=== PATIENT | male | born 1980 | race Two or more races ===

== ENCOUNTER → 2019-12-08 11:45 | Outpatient (BNVA) | payer MEDICAID, SELFPAY | PROVIDERS: Visit Provider Physician Assistant | DX: K21.9 Gastro-esophageal reflux disease without esophagitis (principal); Z79.899 Other long term (current) drug therapy | CPT/HCPCS: 99213 ==

== ENCOUNTER 2019-12-27 09:26 | Outpatient (REF) | payer MEDICAID, SELFPAY | END 2019-12-27 09:27 | disposition home or self-care (01) | LOC: HO.LAB 09:26 | PROVIDERS: Visit Provider Internal Medicine | DX: Z20.828 Contact with and (suspected) exposure to other viral communicable diseases (principal) | CPT/HCPCS: 87635 ==

== ENCOUNTER 2020-02-01 17:44 | Outpatient (REF) | payer MEDICAID, SELFPAY | END 2020-02-01 17:45 | disposition home or self-care (01) | LOC: HO.LAB 17:44 | PROVIDERS: Visit Provider Internal Medicine | DX: Z20.828 Contact with and (suspected) exposure to other viral communicable diseases (principal) | CPT/HCPCS: C9803; U0003 ==

== ENCOUNTER 2020-03-20 10:11 | Outpatient (REF) | payer MEDICAID, SELFPAY | END 2020-03-20 10:12 | disposition home or self-care (01) | LOC: HO.LAB 10:11 | PROVIDERS: PCP Internal Medicine; Visit Provider Internal Medicine | DX: Z20.822 Contact with and (suspected) exposure to COVID-19 (principal) | CPT/HCPCS: 36415; C9803; U0003 ==

== ENCOUNTER 2020-05-15 10:35 | Outpatient (REF) | payer MEDICAID, SELFPAY | END 2020-05-15 10:36 | disposition home or self-care (01) | LOC: HO.LAB 10:35 | PROVIDERS: Visit Provider Internal Medicine | DX: Z20.822 Contact with and (suspected) exposure to COVID-19 (principal) | CPT/HCPCS: 36415; C9803; U0003; U0005 ==

== ENCOUNTER 2021-01-30 16:20 | Outpatient (REF) | payer MEDICAID, SELFPAY ==
--- NOTE | ~2021-01-30 | XR_ITS ---
EXAMINATION: XR CERVICAL SPINE CLINICAL INFORMATION: Neck pain. COMPARISON: Cervical spine 11/02/2018 TECHNIQUE: 5 views of the cervical spine were obtained. FINDINGS: No fracture. No subluxation. The alignment of vertebrae is normal. There is mild cervical disc height narrowing C5-C6. There is a large nonbridging spur at the C4-C5 vertebral body involving the anterior endplates and small nonbridging spurs at C5-C6. There is mild narrowing of the left C5-C6 neural foramina by posterior endplate spurs at the uncinate process. The right neural foramina are open. The facet joints are normal. Compared to the prior exam of 11/02/2018 there has not been substantial change. XR/XR cervical spine 4V IMPRESSION: Mild degenerative spondylosis of cervical spine. There is mild narrowing of the left C5-C6 neural foramina.
--- NOTE | ~2021-01-30 | XR_ITS ---
EXAMINATION: XR SHOULDER, LEFT CLINICAL INFORMATION: Pain in left shoulder COMPARISON: None TECHNIQUE: 4 views. of the left shoulder. FINDINGS: The bones and soft tissues are normal. No fracture. Glenohumeral and acromioclavicular alignment is anatomic with normal joint space. No abnormal soft tissue calcifications. XR/XR shoulder LT min 2V IMPRESSION: Normal left shoulder.
== END 2021-01-30 16:21 | disposition home or self-care (01) ==
LOC: HO.XRAY 16:20
PROVIDERS: Absent Provider Internal Medicine; PCP Internal Medicine; Visit Provider Registered Nurse Community Health
DX: M25.512 Pain in left shoulder (principal); M54.2 Cervicalgia
CPT/HCPCS: 72050; 73030

== ENCOUNTER 2022-01-03 13:53 | Outpatient (REF) | payer OTHER, MEDICAID, SELFPAY ==
--- NOTE | ~2022-01-03 | XR_ITS ---
EXAMINATION: XR LUMBOSACRAL SPINE WITH OBLIQUES CLINICAL INFORMATION: Pain COMPARISON: None TECHNIQUE: AP, both oblique, and lateral views of the lumbar spine. Lateral view of the lumbosacral junction. FINDINGS: Bone alignment is normal. No fracture or dislocation. Degenerative disc disease and spondylosis at L3-L4. Disc spaces are otherwise normal. Facet joints are normal. No pars defect. XR/XR lumbar spine 4V min IMPRESSION: Degenerative changes at L3-L4.
== END 2022-01-03 13:54 | disposition home or self-care (01) ==
LOC: HO.XRAY 13:53
PROVIDERS: Absent Provider Internal Medicine; PCP Internal Medicine; Visit Provider Emergency Medicine
DX: M54.16 Radiculopathy, lumbar region (principal)
CPT/HCPCS: 72110

== ENCOUNTER 2022-02-17 09:11 | Outpatient (REF) | payer OTHER, MEDICAID, SELFPAY ==
--- NOTE | ~2022-02-17 | XR_ITS ---
EXAMINATION: XR CERVICAL SPINE CLINICAL INFORMATION: Cervicalgia. COMPARISON: 01/30/2021. TECHNIQUE: 5 views of the cervical spine. FINDINGS: No abnormal prevertebral soft tissue swelling is seen. No acute cervical spine fracture is noted. There is disc space narrowing with spurring seen C3-C6. No subluxation is identified. There is anterior neural foraminal encroachment seen at the C5-C6 level on the left. This was present previously. XR/XR cervical spine 4V IMPRESSION: Cervical spondylosis as described with some anterior neural foraminal encroachment also seen left C5-C6 level.
== END 2022-02-17 09:12 | disposition home or self-care (01) ==
LOC: HO.XRAY 09:11
PROVIDERS: Visit Provider Nurse Practitioner Women's Health
DX: M54.2 Cervicalgia (principal)
CPT/HCPCS: 72050

== ENCOUNTER 2022-04-16 16:00 | Outpatient (RCR) | payer OTHER, MEDICAID, SELFPAY | END 2022-04-17 15:07 | disposition home or self-care (01) | LOC: HO.PT 16:00 | PROVIDERS: PCP Registered Nurse Community Health; Visit Provider Nurse Practitioner Women's Health | DX: M54.2 Cervicalgia (principal) | CPT/HCPCS: 97110; 97140; 97161; 97530 ==

== ENCOUNTER 2023-05-12 08:38 | Outpatient (REF) | payer OTHER, MEDICAID, SELFPAY ==
[2023-05-12 11:13] LABS: MANUAL DIFF FLAG NO
[2023-05-12 11:36] LABS: Basophils Percent Auto 0.3 % (0-2); Eosinophils Absolute Auto 0.1 X10*3/uL (0.0-0.4); Eosinophils Percent Auto 1.3 % (0-4); Hematocrit 45.3 % (42.0-52.0); Hemoglobin 15.6 g/dl (14.0-18.0); Imm Gran Abs Auto 0.01 X10*3/uL (0.00-0.03); Imm Gran Pct Auto 0.1 % (0.0-0.4); Lymphocytes Absolute Auto 2.2 X10*3/uL (1.2-4.9); Mean Corpuscular HGB Conc 34.4 g/dl (31.0-36.0); Mean Corpuscular Hemoglobin 30.8 pg (27.0-33.0); Mean Corpuscular Volume 89.3 fL (80.0-98.0); Mean Platelet Volume 11.6 fL (9.4-12.4); Monocytes Absolute Auto 0.4 X10*3/uL (0.1-1.2); Monocytes Percent Auto 6.3 % (2-11); Neutrophils Absolute Auto 3.9 x10*3/uL (2.0-8.3); Platelet Count 170 X10*3/uL (160-400); Red Blood Count 5.07 X10*6/uL (4.60-5.80); White Blood Count 6.7 X10*3/uL (4.8-10.8)
[2023-05-12 11:47] LABS: Estimated Average Glucose 103 mg/dL; Hemoglobin A1C 127.7336 umol/L; Hemoglobin A1c % 5.2 % (<6.0)
[2023-05-12 12:02] LABS: Alanine Aminotransferase 48 U/L (0-40); Albumin Level 4.4 g/dL (3.5-5.0); Alkaline Phosphatase 71 U/L (39-117); Anion Gap 7 (12-20); Aspartate Amino Transferase 27 U/L (5-37); Bilirubin Direct < 0.2 mg/dL (0.0-0.5); Bilirubin Total 0.2 mg/dL (0.0-1.0); Blood Urea Nitrogen 18 mg/dL (9-16); Calcium 9.1 mg/dL (8.4-10.2); Carbon Dioxide 24 mmol/L (22-29); Chloride 113 mmol/L (96-108); Cholesterol 191 mg/dL (<200); Estimated Glomerular Filt Rate > 60; Glucose Random 93 mg/dL (60-115); HDL Cholesterol 35 mg/dL (>40); LDL Cholesterol Calculated 122 mg/dL (<100); Potassium 4.4 mmol/L (3.3-5.1); Sodium 140 mmol/L (135-145); TSH reflex Free T4 0.24 uIU/mL (0.32-4.0); Total Protein 7.2 g/dL (6.5-8.0); Triglycerides 173 mg/dL (<150)
[2023-05-12 12:09] LABS: HIV AB/AG Nonreactive (Nonreactive); HIV Num 1 0.05 S/CO (0.00-0.99); ~HepC Num1 0.09 S/CO (0.00-0.79); ~Hepatitis C Antibody Nonreactive (Nonreactive)
[2023-05-12 13:34] LABS: CT PCR NOT DETECTED (Not Detect.); NG PCR NOT DETECTED (Not Detect.)
[2023-05-13 12:48] LABS: RPR Rapid Plasma Reagin NON-REACTIVE (NON-REACTIVE)
== END 2023-05-12 08:39 | disposition home or self-care (01) ==
LOC: HO.HHCL 08:38
PROVIDERS: Visit Provider Internal Medicine
DX: Z00.00 Encounter for general adult medical examination without abnormal findings (principal); Z11.4 Encounter for screening for human immunodeficiency virus [HIV]; Z13.6 Encounter for screening for cardiovascular disorders; R00.2 Palpitations; Z20.2 Contact with and (suspected) exposure to infections with a predominantly sexual mode of transmission
CPT/HCPCS: 0353U; 36415; 80048; 80061; 80076; 83036; 84439; 84443; 85025; 86592; 86803; 87389

== ENCOUNTER 2023-06-03 10:27 | Emergency (ER) | payer MEDICAID, SELFPAY ==
--- NOTE | ~2023-06-03 | XR_ITS ---
EXAMINATION: XR CHEST CLINICAL INFORMATION: Chest pain COMPARISON: 11/20/2019 TECHNIQUE: 2 views of the chest were obtained. FINDINGS: No significant abnormality is noted involving the heart, lungs, mediastinum, bony thorax or soft tissues. XR/XR chest 2V IMPRESSION: Unremarkable examination with no interval change.
--- NOTE | 2023-06-03 10:32 | ECG_ITS ---
Test Reason : chest pain Blood Pressure : / mmHG Vent. Rate : 069 BPM Atrial Rate : 069 BPM P-R Int : 162 ms QRS Dur : 092 ms QT Int : 338 ms P-R-T Axes : 078 013 039 degrees QTc Int : 362 ms Normal sinus rhythm Normal ECG No previous ECGs available Referred By: Generic ED Physician Electronically Signed By:WILD LARSEN MD
[2023-06-03 10:33] VITALS: BP 105/44; PULSE 91; RESP 20; TEMP 36.4; O2SAT 98; BMI 25.8
[2023-06-03 10:47] LABS: MANUAL DIFF FLAG NO
[2023-06-03 10:48] LABS: Basophils Percent Auto 0.4 % (0-2); Eosinophils Absolute Auto 0.1 X10*3/uL (0.0-0.4); Eosinophils Percent Auto 1.5 % (0-4); Hematocrit 42.5 % (42.0-52.0); Hemoglobin 14.5 g/dl (14.0-18.0); Imm Gran Abs Auto 0.01 X10*3/uL (0.00-0.03); Imm Gran Pct Auto 0.2 % (0.0-0.4); Lymphocytes Absolute Auto 2.2 X10*3/uL (1.2-4.9); Lymphocytes Percent Auto 46.3 % (20-40); Mean Corpuscular HGB Conc 34.1 g/dl (31.0-36.0); Mean Corpuscular Hemoglobin 30.3 pg (27.0-33.0); Mean Corpuscular Volume 88.7 fL (80.0-98.0); Mean Platelet Volume 11.2 fL (9.4-12.4); Monocytes Absolute Auto 0.4 X10*3/uL (0.1-1.2); Monocytes Percent Auto 8.4 % (2-11); Neutrophils Absolute Auto 2.1 x10*3/uL (2.0-8.3); Neutrophils Percent Auto 43.2 % (45-73); Platelet Count 179 X10*3/uL (160-400); Red Blood Count 4.79 X10*6/uL (4.60-5.80); Red Cell Distribution Width 13.3 % (11.0-16.0); White Blood Count 4.8 X10*3/uL (4.8-10.8)
[2023-06-03 11:19] LABS: Anion Gap 11 (12-20); Blood Urea Nitrogen 16 mg/dL (9-16); Calcium 9.7 mg/dL (8.4-10.2); Carbon Dioxide 23 mmol/L (22-29); Chloride 111 mmol/L (96-108); Creatinine Clr Calc Pharmacy 116.8; Estimated Glomerular Filt Rate > 60; Glucose Random 106 mg/dL (60-115); Potassium 4.3 mmol/L (3.3-5.1); Sodium 141 mmol/L (135-145)
[2023-06-03 11:33] LABS: Troponin-I High Sensitivity < 2.7 ng/L (<3.5-35.0)
[2023-06-03 13:09] LABS: Influenza A PCR NEGATIVE (Negative); Influenza B PCR NEGATIVE (Negative); Resp Syncy Virus RNA Qual PCR NEGATIVE (Negative); SARS COV2 PCR INHOUSE NEGATIVE (Negative)
[2023-06-03 15:33] VITALS: BP 115/73; PULSE 83; RESP 20; O2SAT 97
--- NOTE | 2023-06-03 15:34 | ED_ITS ---
HPI - Chest Pain General Chief Complaint: Chest Pain Stated Complaint: Chest pain, headache Time Seen by Provider: 06/03/23 15:22 Source: patient Mode of arrival: ambulatory Limitations: no limitations History of Present Illness HPI narrative: 42 yo male with hx of HLD no fam hx of early CAD here with c/o pinching atypical reproduceable L upper chest wall pain with no dyspnea, nausea, not related to exertion. Denies travel or procedures. Notes it just comes out of nowhere. 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 Has no known CAD. MD complaint: chest pain Onset (ago): day(s) (7) Timing of current episode: episodic Prior episodes: No Onset: during rest Pain location: left chest Pain radiation: none Severity: mild Quality: other (sharp and pinching) Relieving factors: nothing Exacerbating factors: nothing Context: other (just started back to [facility] and usually gets sore) Treatment prior to arrival: none Related Data Home Medications Medication Instructions Recorded Confirmed gabapentin 300 mg capsule 300 mg PO BEDTIME 12/08/19 12/08/19 pantoprazole 40 mg tablet,delayed 40 mg PO DAILY 12/08/19 12/08/19 release Previous Rx's Medication Instructions Recorded cyclobenzaprine 10 mg tablet 10 mg PO TID PRN muscle spasm #20 06/03/23 tabs Allergies Allergy/AdvReac Type Severity Reaction Status Date / Time No Known Allergies Allergy Verified 12/08/19 11:52 none Allergy Unknown n/a Uncoded 12/08/19 11:52 Review of Systems 2 Review of Systems: Constitutional : No Weight loss, No Fever, No Chills ENT/Mouth : No sore throat, No Rhinorrhea Eyes: No Eye Pain, No Swelling Cardiovascular : pos Chest Pain, no SOB, no Dyspnea on Exertion, No Orthopnea, No Edema, No Palpitations Respiratory : No Cough, No Sputum Gastrointestinal : no Nausea, No Vomiting, No Diarrhea, No abdominal Pain, No Hematochezia, No Melena Genitourinary : No Dysuria, No Urinary Frequency Musculoskeletal : No joint pain, No Myalgias, No Joint Swelling Skin : No Skin Lesions, No rash Neuro : No Weakness, No Numbness, No Dizziness, No Headache All other systems reviewed and are negative [facility] Past Medical History Attestation statement: The following information was validated with the patient. Source: old records reviewed Medical History Elevated liver enzymes Acid reflux Surgical History H/O umbilical hernia repair Family History Family History Mother No problems noted. Father Liver disease Social History Social History Alcohol intake: current Alcohol intake frequency: a few times a month Alcohol type: beer Cigarette Packs Per Day: 1 Cigarettes Per Day: 20.0 Years Smoked: 20 Advance Directives: No Advance Directives Information Provided: No Physical Exam 2 Vital Signs: Vital Signs: Last Vital Signs Temp 97.5 F 06/03/23 10:33 Pulse 91 06/03/23 10:33 Resp 20 06/03/23 10:33 BP 105/44 L 06/03/23 10:33 Pulse Ox 98 06/03/23 10:33 O2 Del Method Room Air 06/03/23 10:33 BMI result Body Mass Index 25.8 Appearance: Alert. Oriented X3. No acute distress. Eyes: Pupils equal, round and reactive to light. ENT: Pharynx normal. Neck: Normal inspection. Neck supple. CVS: Normal heart rate and rhythm. Pulses normal. Chest: L upper pectoralis reproduces pain to palpation Respiratory: No respiratory distress. Breath sounds normal. Abdomen: Soft and nontender. Skin: Skin warm and dry. Normal skin color. Normal skin turgor. Extremities: No lower extremity edema. No calf ttp Neuro: Oriented X 3. No motor deficit. No sensory deficit. 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 No early CAD in family. At this time story is atypical and his pain is reproduceable suspect mostly MSK will obtain troponin, EKG, CXR if negative DC home with precautions. Differential Diagnosis Differential Diagnoses: The differential diagnosis associated with the presentation includes chest wall pain, atypical chest pain distal pulses intact doubt dissection PERC negative doubt VTE Admission/Observation Consideration of admission/observation: Escalation of care including admission/observation considered work up negative stable for DC Lab Data MDM Lab Attestation statement: I reviewed the patient's lab results. 06/03/23 10:43 06/03/23 10:43 Labs: Lab Results 06/03/23 06/03/23 Range/Units 10:43 12:24 WBC 4.8 (4.8-10.8) X10*3/uL RBC 4.79 (4.60-5.80) X10*6/uL Hgb 14.5 (14.0-18.0) g/dl Hct 42.5 (42.0-52.0) % MCV 88.7 (80.0-98.0) fL MCH 30.3 (27.0-33.0) pg MCHC 34.1 (31.0-36.0) g/dl RDW 13.3 (11.0-16.0) % Plt Count 179 (160-400) X10*3/uL MPV 11.2 (9.4-12.4) fL Immature Gran % (Auto) 0.2 (0.0-0.4) % Neut % (Auto) 43.2 L (45-73) % Lymph % (Auto) 46.3 H (20-40) % [place] % (Auto) 8.4 (2-11) % Eos % (Auto) 1.5 (0-4) % Baso % (Auto) 0.4 (0-2) % Lymph # (Auto) 2.2 (1.2-4.9) X10*3/uL [place] # (Auto) 0.4 (0.1-1.2) X10*3/uL Eos # (Auto) 0.1 (0.0-0.4) X10*3/uL Baso # (Auto) 0.0 (0.0-0.2) X10*3/uL Abs Immat Gran (auto) 0.01 (0.00-0.03) X10*3/uL Absolute Neuts (auto) 2.1 (2.0-8.3) x10*3/uL Absolute Nucleated RBC 0.000 (0.0-0.012) X10*3/uL Nucleated RBC % (auto) 0.0 (0.0-0.2) /100WBC Sodium 141 (135-145) mmol/L Potassium 4.3 (3.3-5.1) mmol/L Chloride 111 H (96-108) mmol/L Carbon Dioxide 23 (22-29) mmol/L Anion Gap 11 L (12-20) BUN 16 (9-16) mg/dL Creatinine 0.85 (0.5-1.4) mg/dL Estim Creat Clear Calc 116.8 Estimated GFR > 60 Random Glucose 106 (60-115) mg/dL Calcium 9.7 D (8.4-10.2) mg/dL Troponin I High Sens < 2.7 (<3.5-35.0) ng/L Influenza Type A (PCR) NEGATIVE (Negative) Influenza Type B (PCR) NEGATIVE (Negative) RSV RNA Qual (PCR) NEGATIVE (Negative) SARS-CoV-2 RNA (RT-PCR) NEGATIVE (Negative) Independent Interpretation I performed an independent interpretation of an: EKG and Plain X-Ray (normal ) Interpretation: Rate: 69 Rhythm: NSR [place]: normal Normal P waves. Normal DORIAN. Normal QRS complex. ST T wave : normal no STU, V3 T wave is tall qTC: normal prior studies: no acute ischemia The study has been interpreted contemporaneously by me. . Radiology Impression Discussion of test interpretation with radiology: I have reviewed the radiologist's reading. External Record Review External record reviewed: Inpatient record Prescription Management I considered prescription management with: Other Discharge Plan Discharge Clinical Impression: Atypical chest pain Patient Disposition: Home, Self-Care Instructions: Chest Pain (ED), Chest Wall Pain (ED) Additional Instructions: electrocardiogram normal, chest xray normal, blood test for heart normal if this continues please follow up with your doctor for outpatient stress test Prescriptions: New cyclobenzaprine 10 mg tablet 10 mg PO TID PRN (Reason: muscle spasm) Qty: 20 0RF No Action pantoprazole 40 mg tablet,delayed release (DR/EC) 40 mg PO DAILY gabapentin 300 mg capsule 300 mg PO BEDTIME Stand Alone Forms: Work/School Release
[2023-06-03 15:40] VITALS: BP 115/73; PULSE 83; RESP 20; TEMP 36.4; O2SAT 97
== END 2023-06-03 15:40 | disposition home or self-care (01) ==
PROVIDERS: Physician Assistant Medical; Emergency Provider Emergency Medicine; PCP Internal Medicine
DX: R07.89 Other chest pain (principal)
CPT/HCPCS: 0241U; 36415; 71046; 80048; 84484; 85025; 93005; 99283

== ENCOUNTER → 2023-06-03 10:32 | Outpatient (BNV) | payer MEDICAID, SELFPAY | PROVIDERS: Emergency Provider Emergency Medicine; PCP Internal Medicine; Visit Provider Internal Medicine Cardiovascular Disease | DX: R07.9 Chest pain, unspecified (principal) | CPT/HCPCS: 93010 ==

== ENCOUNTER 2023-12-11 11:16 | Outpatient (REF) | payer OTHER, SELFPAY ==
[2023-12-11 13:55] LABS: Estimated Average Glucose 103 mg/dL; Hemoglobin A1C 121.1226 umol/L; Hemoglobin A1c % 5.2 % (<6.0); Total Hemoglobin (HGBA1C) 3619.5204 umol/L
[2023-12-11 14:12] LABS: Cholesterol 177 mg/dL (<200); HDL Cholesterol 42 mg/dL (>40); LDL Cholesterol Calculated 115 mg/dL (<100); Triglycerides 100 mg/dL (<150)
[2023-12-11 14:13] LABS: TSH reflex Free T4 0.41 uIU/mL (0.32-4.0)
[2023-12-12 04:12] LABS: HBS Num1 123.21 mIU/mL (0-7.99); HBc Num1 0.14 S/CO (0.00-0.79); HBsAGNum1 0.35 S/CO (0.00-0.99); HIV AB/AG Nonreactive (Nonreactive); HIV Num 1 0.06 S/CO (0.00-0.99); Hepatitis A Antibody IgM 0.32 Index (0-0.79); Hepatitis B Core Antibody Nonreactive (Nonreactive); Hepatitis B Surface Antigen Negative (Negative); ~HepC Num1 0.12 S/CO (0.00-0.79); ~Hepatitis A Antibody IgM Nonreactive (Nonreactive); ~Hepatitis B Surface Antibody REACTIVE (Nonreactive); ~Hepatitis C Antibody Nonreactive (Nonreactive)
[2023-12-15 12:59] LABS: RPR Rapid Plasma Reagin NON-REACTIVE (NON-REACTIVE)
== END 2023-12-11 11:17 | disposition home or self-care (01) ==
LOC: HO.HHCL 11:16
PROVIDERS: Visit Provider Internal Medicine
DX: E78.2 Mixed hyperlipidemia (principal); R79.89 Other specified abnormal findings of blood chemistry; Z11.3 Encounter for screening for infections with a predominantly sexual mode of transmission; Z13.1 Encounter for screening for diabetes mellitus
CPT/HCPCS: 36415; 80061; 83036; 84443; 86592; 86704; 86706; 86709; 86803; 87340; 87389

== ENCOUNTER 2024-02-03 12:16 | Outpatient (REF) | payer MEDICAID, SELFPAY ==
[2024-02-07 08:14] LABS: Trichomonas vaginalis RNA DETECTED (NOT DETECTED)
--- OUTSIDE RECORDS SUMMARY | 2024-02-10 02:06 | XMS_ITS | Data Portability ---
Author Organization [facility], [address] Address [address] [place] [address] Assessment No assessment recorded. Plan of Treatment Reminders Order Date Submit Date Provider Last Modified By Organization Details Last Modified Time Details Appointments None recorded. Lab None recorded. Referral None recorded. Procedures None recorded. Surgeries None recorded. Imaging None recorded. Medication Orders epinephri ne 1 mg/mL (1 mL) injection solution 2022 023 [email or web address] Not available 13:59:28 diphenhyd ramine 50 mg/mL injection solution 2022 023 [email or web address] Not available 14:29:35 Patient TargetsNo targets recorded. Patient Instructions Encounter Date Encounter Id Patient Instructions Last Modified By Organization Details Last Modified Time 10/23/2022 [id number] allergic reaction: care instructions [email or web address] Not available 10/23/2022 14:28:07 Reason for Referral None Reported. Medical Equipment None Reported. Medications Name Sig Start Date Stop Date Status Note LastModified by Organization Details LastModified Time diphenhydrami ne 50 mg/mL injection solution Take 50 mg by injection route. 2022 active Not Available Not Available Not Avai lable epinephrine 1 mg/mL (1 mL) injection solution Take 0.3 mL by injection route. 2022 active Not Available Not Available Not Avai lable Vitals Date Recorded Oxygen saturation Oxygen saturation in Arterial blood by Pulse oximetry Heart rate Respiratory rate Systolic blood pressure Diastolic blood pressure Provider Name and Address Organization Details Last Updated DateTime 3 100 % 100 % 80 /min 22 /min 135 mm[Hg] 85 mm[Hg] Daniella Cox MD [address] [place], [address], [place] - [facility] 14:30:50 Social History None recorded. Functional Status None recorded. Mental Status None recorded. Family History Nothing Reported. Medical History No medical history recorded. Past Encounters Encounter ID Performer Location Encounter Start Date Encounter Closed Date Diagnosis/Indication Diagnosis SNOMED-CT Code Diagnosis ICD10 Code [id number] [facility] [address] [place] [address] 09/29/2019 09:28:28 09/29/2019 10:58:33 [id number] [place] [address] [place] [address] 10/23/2022 14:25:26 10/23/2022 14:28:57 Allergic reaction to bee sting 545840574 T63.444A Bee sting- induced anaphylaxis [id number] T63.441A Health Concerns Section Related Observation LastModified by Organization Detai ls LastModified Time None Recorded Concern Status LastModified by Organization Details LastModified Time None Recorded Advance Directives Directive None Recorded Payers Encounter Date Sequence Insurance Name Policy Number Policy Joyce Covered Member ID Joyce Member ID Guarantor Name 09/29/2019 1 [place]ICAID[place] Felix Fernando [id number] Felix Fernando 10/23/2022 1 [place] Felix Fernando [id number] Felix Fernando Notes Date Note Type Note Provider Name and Address Organization Details Recorded Time 10/23/2022 text/html Facial ProblemReported bypatient.Onset/Timin g:abrupt Location:face bilateral Quality:continuous Duration:10minutes Severity:worsening Associated Symptoms:erythema;mk sea;dizziness;swellin g 10 minutes ago was stung by multiple bees on face. Immediate facials welling, lips, cheeks, eyes and feeling nauseas and dizzy Daniella Cox MD [address] [place] [address] [place], [address], [place] - [facility] 10/23/2022 14:51:41
== END 2024-02-03 12:17 | disposition home or self-care (01) ==
LOC: HO.HHCLNP 12:16
PROVIDERS: Visit Provider Emergency Medicine
DX: Z86.19 Personal history of other infectious and parasitic diseases (principal)
CPT/HCPCS: 36415; 87661

== ENCOUNTER 2024-02-11 10:33 | Outpatient (REF) | payer MEDICAID, SELFPAY ==
--- OUTSIDE RECORDS SUMMARY | 2024-02-11 10:37 | XMS_ITS | Data Portability ---
Author Organization [facility], [address] Address [address] [place] [address] Assessment No assessment recorded. Plan of Treatment [...] By Organization Details Last Modified Time 10/23/2022 [id number] allergic reaction: care instructions [email or web address] Not available [...] Daniella Cox MD [address] [place], [address], [place] - [facility] 14:30:50 Social History None recorded. Functional Status None recorded. Mental Status None recorded. Family History Nothing Reported. Medical History No medical history recorded. Past Encounters Encounter ID Performer Location Encounter Start Date Encounter Closed Date Diagnosis/Indication Diagnosis SNOMED-CT Code Diagnosis ICD10 Code [id number] [facility] [address] [place] [address] 09/29/2019 09:28:28 09/29/2019 10:58:33 [id number] Daniella [place] [address] [place] [address] 10/23/2022 14:25:26 10/23/2022 14:28:57 Allergic reaction to bee sting [id number] T63.444A Bee sting- induced anaphylaxis [id number] T63.441A Health Concerns Section Related Observation LastModified by Organization Detai ls LastModified Time None Recorded Concern Status LastModified by Organization Details LastModified Time None Recorded Advance Directives Directive None Recorded Payers Encounter Date Sequence Insurance Name Policy Number Policy Joyce Covered Member ID Joyce Member ID Guarantor Name 09/29/2019 1 [place]ID[place] Felix Fernando [id number] Felix Fernando 10/23/2022 1 [place] Felix Fernando [id number] Felix Fernando Notes Date Note Type Note Provider Name and Address Organization Details Recorded Time 10/23/2022 text/html Facial ProblemReported bypatient.Onset/Timin g:abrupt Location:face bilateral Quality:continuous Duration:10minutes Severity:worsening Associated Symptoms:erythema;mk sea;dizziness;swellin g 10 minutes ago was stung by multiple bees on face. Immediate facials welling, lips, cheeks, eyes and feeling nauseas and dizzy Daniella Cox MD [address] [place] [address] [place], [address], [place] - [facility] 10/23/2022 14:51:41
[2024-02-11 11:31] LABS: MANUAL DIFF FLAG NO
[2024-02-11 11:36] LABS: Basophils Percent Auto 0.3 % (0-2); Eosinophils Absolute Auto 0.1 X10*3/uL (0.0-0.4); Hematocrit 43.1 % (42.0-52.0); Hemoglobin 14.4 g/dl (14.0-18.0); Imm Gran Abs Auto 0.02 X10*3/uL (0.00-0.03); Imm Gran Pct Auto 0.3 % (0.0-0.4); Lymphocytes Absolute Auto 2.3 X10*3/uL (1.2-4.9); Lymphocytes Percent Auto 40.1 % (20-40); Mean Corpuscular HGB Conc 33.4 g/dl (31.0-36.0); Mean Corpuscular Hemoglobin 30.2 pg (27.0-33.0); Mean Corpuscular Volume 90.4 fL (80.0-98.0); Mean Platelet Volume 11.5 fL (9.4-12.4); Monocytes Absolute Auto 0.6 X10*3/uL (0.1-1.2); Monocytes Percent Auto 9.7 % (2-11); Neutrophils Absolute Auto 2.8 x10*3/uL (2.0-8.3); Neutrophils Percent Auto 48.6 % (45-73); Platelet Count 187 X10*3/uL (160-400); Red Blood Count 4.77 X10*6/uL (4.60-5.80); Red Cell Distribution Width 13.2 % (11.0-16.0); White Blood Count 5.8 X10*3/uL (4.8-10.8)
[2024-02-11 12:27] LABS: Alanine Aminotransferase 73 U/L (0-40); Albumin Level 4.3 g/dL (3.5-5.0); Alkaline Phosphatase 57 U/L (39-117); Anion Gap 9 (12-20); Aspartate Amino Transferase 37 U/L (5-37); Bilirubin Total 0.3 mg/dL (0.0-1.0); Blood Urea Nitrogen 16 mg/dL (9-16); Carbon Dioxide 27 mmol/L (22-29); Chloride 109 mmol/L (96-108); Cholesterol 164 mg/dL (<200); Estimated Glomerular Filt Rate > 60; Glucose Random 91 mg/dL (60-115); HDL Cholesterol 43 mg/dL (>40); LDL Cholesterol Calculated 97 mg/dL (<100); Potassium 4.3 mmol/L (3.3-5.1); Sodium 141 mmol/L (135-145); Total Protein 6.9 g/dL (6.5-8.0); Triglycerides 120 mg/dL (<150)
[2024-02-11 12:37] LABS: HBc Num1 0.08 S/CO (0.00-0.79); HBsAGNum1 0.38 S/CO (0.00-0.99); HIV AB/AG Nonreactive (Nonreactive); HIV Num 1 0.07 S/CO (0.00-0.99); Hepatitis B Core Antibody Nonreactive (Nonreactive); Hepatitis B Surface Antigen Negative (Negative); ~HepC Num1 0.09 S/CO (0.00-0.79); ~Hepatitis B Surface Antibody REACTIVE (Nonreactive); ~Hepatitis C Antibody Nonreactive (Nonreactive)
[2024-02-11 12:45] LABS: Folate 14.8 ng/mL (> or = 4.0); Vitamin B12 700 pg/mL (200-900)
[2024-02-11 12:47] LABS: TSH reflex Free T4 0.43 uIU/mL (0.32-4.0); Vitamin D 25-OH Total 42.4 ng/mL (>30)
[2024-02-11 15:22] LABS: CT PCR NOT DETECTED (Not Detect.); NG PCR NOT DETECTED (Not Detect.)
[2024-02-12 20:58] LABS: Trichomonas vag. RNA Ur Male NOT DETECTED (NOT DETECTED)
[2024-02-12 21:13] LABS: RPR Rapid Plasma Reagin NON-REACTIVE (NON-REACTIVE)
== END 2024-02-11 10:34 | disposition home or self-care (01) ==
LOC: HO.HHCL 10:33
PROVIDERS: Emergency Medicine; Visit Provider Internal Medicine
DX: R00.2 Palpitations (principal); Z86.19 Personal history of other infectious and parasitic diseases; A59.00 Urogenital trichomoniasis, unspecified
CPT/HCPCS: 36415; 80053; 80061; 82306; 82607; 82746; 84443; 85025; 86592; 86704; 86706; 86803; 87340; 87389; 87491; 87591; 87661

== ENCOUNTER 2024-03-31 12:02 | Observation (INO) | payer OTHER, SELFPAY ==
--- NOTE | ~2024-03-31 | CT_ITS ---
EXAMINATION: CT HEAD WITHOUT IV CONTRAST HISTORY: left facial numbness. TECHNIQUE: Unenhanced helical CT of the head was performed per standard departmental protocol. Coronal and sagittal reformats of the head were also evaluated. One or more of the following techniques was used for dose reduction: Automated exposure control, adjustment of the mA and/or kV according to patient size, use of iterative reconstruction technique. DLP: 731 mGy-cm COMPARISON: There are no prior studies for comparison. FINDINGS: BRAIN: The brain parenchyma is unremarkable. There is normal garcias/white differentiation. The ventricular system is normal in size and configuration. There is no mass effect or midline shift. No intra- or extra-axial fluid collections are identified. SINUSES: The visualized paranasal sinuses are clear. The mastoid air cells and middle ear cavities are well pneumatized. ORBITS: The visualized orbits are unremarkable. BONES/SOFT TISSUES: The extracranial soft tissues are unremarkable. The calvarium is intact. No suspicious lytic or sclerotic lesions. CT/CT head/brain wo IV con IMPRESSION: Unremarkable unenhanced head CT. Electronically signed by: Roger Love MD 03/31/2024 12:54 PM [facility] [place]
--- NOTE | ~2024-03-31 | CT_ITS ---
CLINICAL HISTORY: L facial and L arm numbness tingling CT angiography head and neck with contrast. 3D Postprocessing. Comparison: None Findings: Aortic arch and cervical great vessels are patent. Intracranial arteries are patent. No aneurysm, dissection, or occlusion. No abnormal intracranial enhancement. The visualized thyroid gland is unremarkable. No cervical mass or fluid collection. Lung apices clear. No acute fracture. IMPRESSION: Patent head and neck CTA. This document has been electronically signed by: Geronimo Maguire MD on 03/31/2024 19:41:47
--- NOTE | ~2024-03-31 | MR_ITS ---
CLINICAL HISTORY: ?TIA Facial numbness MR Brain without gadolinium Comparison: CT head 03/31/2024 Findings: No restricted diffusion. No intracranial mass or hemorrhage. No midline shift. No hydrocephalus. Vascular flow voids are intact. The orbits are normal. The sinuses and mastoid air cells are clear. No focal bone lesion. IMPRESSION: No acute findings. This document has been electronically signed by: Geronimo Maguire MD on 03/31/2024 21:21:17
[2024-03-31 12:07] VITALS: BP 127/69; PULSE 81; RESP 18; TEMP 37.3; O2SAT 97; BMI 27.2
--- NOTE | 2024-03-31 12:07 | ED_ITS ---
HPI - General Adult General Chief complaint: Neuro Symptoms/Deficit Stated complaint: Facial numbness L side, dizziness Time Seen by Provider: 03/31/24 17:23 Source: patient Mode of arrival: ambulatory Limitations: no limitations History of Present Illness ED Provider: Dr. Heather Romero HPI narrative: Patient comes to the emergency room complaining of left-sided facial numbness and left arm numbness tingling. Patient states it started a few minutes prior to arrival to the ED. Patient states that the symptoms lasted for about 10-15 minutes, then self resolved. Patient states that he has never had this happened before. At this time, patient has no symptoms but feels a bit scared, states that he had a little bit of trouble moving his left arm. At this time, patient is asymptomatic. Related Data Home Medications ?Medication ?Instructions ?Recorded ?Confirmed gabapentin 300 mg capsule 300 mg PO BEDTIME 12/08/19 12/08/19 pantoprazole 40 mg tablet,delayed 40 mg PO DAILY 12/08/19 12/08/19 release Previous Rx's ?Medication ?Instructions ?Recorded cyclobenzaprine 10 mg tablet 10 mg PO TID PRN muscle spasm #20 06/03/23 tabs Allergies Allergy/AdvReac Type Severity Reaction Status Date / Time No Known Allergies Allergy Verified 03/31/24 12:09 none Allergy Unknown n/a Uncoded 12/08/19 11:52 Review of Systems 2 Review of Systems: Constitutional : No Weight loss, No Fever, No Chills, No Night Sweats, No Fatigue, No Malaise ENT/Mouth : No Hearing loss, No Ear Pain, No Nasal Congestion, No Sinus Pain, No Hoarseness, No sore throat, No Rhinorrhea, No Swallowing Difficulty Eyes: No Eye Pain, No Swelling, No Redness, No Foreign Body, No Discharge, No Vision Changes Cardiovascular : No Chest Pain, No SOB, No Dyspnea on Exertion, No Orthopnea, No Edema, No Palpitations Respiratory : No Cough, No Sputum, No Wheezing, No Smoke Exposure, No Dyspnea Gastrointestinal : No Nausea, No Vomiting, No Diarrhea, No Constipation, No abdominal Pain, No Hematochezia, No Melena Genitourinary : no irregular bleeding, No Dysuria, No Urinary Frequency, No Hematuria, No Urinary Incontinence, No Urgency, No Flank Pain, No Urinary Flow Changes, No Hesitancy Musculoskeletal : No joint pain, No Myalgias, No Joint Swelling Skin : No Skin Lesions, No rash Neuro : No Weakness, No Numbness, complaining of left-sided facial paresthesia, also paresthesia of left arm, slight trouble moving his left arm but now all self-resolved. Psych : No Anxiety/Panic, No Depression, No SI/HI/AH/VH, No Social Issues, Heme/Lymph: No Bruising, No Bleeding,No Lymphadenopathy Endocrine : No Polyuria, No Polydipsia, No Temperature Intolerance [facility] Past Medical History Medical History Elevated liver enzymes Acid reflux Surgical History H/O umbilical hernia repair Family History Family History Mother No problems noted. Father Liver disease Social History Social History Alcohol intake: current Alcohol intake frequency: a few times a month Alcohol type: beer Cigarette Packs Per Day: 1 Cigarettes Per Day: 20.0 Years Smoked: 20 Smoked in Last 30 Days: Yes Advance Directives: No Advance Directives Information Provided: No Physical Exam ED Vital Signs: Vital Signs - 24 hr 03/31/24 12:07 03/31/24 16:44 Temperature 99.1 F 98.1 F Pulse Rate 81 73 Respiratory Rate 18 18 Blood Pressure 127/69 115/64 Pulse Oximetry 97 96 Oxygen Delivery Method Room Air Room Air BMI result Body Mass Index 27.2 Const Other: Appearance: Alert. Oriented X3. No acute distress. Eyes: Pupils equal, round and reactive to light. ENT: Pharynx normal. Neck: Normal inspection. Neck supple. No lymph nodes noted. No crepitus CVS: Normal heart rate and rhythm. Pulses normal. Normal S1 and S2 Respiratory: No respiratory distress. Breath sounds normal. No Wheezing. No rales Abdomen: Soft and nontender. No rigidity. No distention. Skin: Skin warm and dry. Normal skin color. Normal skin turgor. Extremities: No lower extremity edema. No Lacerations. No Rash Neuro: Oriented X 3. No motor deficit. No sensory deficit. Moving all extremities. No slurred speech. CN 2 through 12 grossly intact Psych: calm, cooperative, normal affect NIH Stroke Scale Internal: Initial- Upon Arrival Level of Consciousness: Alert Level of Consciousness Questions: Answers both questions correctly Level of Consciousness Commands: Performs both tasks correctly Best Gaze: Normal Visual: No visual loss Facial Palsy: Normal Motor Arm (Right): No drift Motor Arm (Left): No drift Motor Leg (Right): No drift Motor Leg (Left): No drift Limb Ataxia: Absent Sensory: Normal Best Language: No aphasia Dysarthia: Normal Extinction and Inattention: No abnormality Score: 0 Course Course Course Narrative: RME, this is a rapid medical exam performed by Jarett Alicea please refer to primary provider for complete H&P- 43-year-old male presents for evaluation of left-sided facial numbness that started about 30 minutes prior to arrival. He reports over last few days he has had headaches which are atypical for him. He reports some numbness and tingling in his left arm as well. He states he feels ?foggy he also complains of dizziness and general fatigue. Stroke score negative. Plan for labs, CT scan of the brain Medications Administered Discontinued Medications Generic Name Dose Route Start Last Admin Trade Name Shawnq PRN Reason Stop Dose Admin Aspirin 325 mg 03/31/24 17:33 03/31/24 17:41 Aspirin Enteric Coated 325 Mg Tablet.Dr PO 03/31/24 17:34 325 mg ONCE ONE Administration Atorvastatin Calcium 80 mg 03/31/24 17:33 03/31/24 17:41 Atorvastatin Calcium 80 Mg Tablet PO 03/31/24 17:34 80 mg ONCE ONE Administration Iohexol 70 ml 03/31/24 19:13 03/31/24 19:13 Iohexol 350 Mg/Ml 100 Ml Infus..Btl IV 03/31/24 19:14 70 ml ONCE ONE Administration My interpretation of labs: No significant abnormality in patient's hematology or chemistry CT scan of the head does not show any acute abnormality My interpretation of EKG, normal sinus rhythm, heart rate 79, no ST segment depression or elevation, no T-wave inversion, QTC 392 At this time, patient is asymptomatic. NIH score 0, no a candidate for TNK Patient is now getting a CTA of the head and neck. Given the patient's symptoms, it is possible the patient may have had a TIA. Discussed with the patient that after the CTA, it is likely that the patient will need admission for further workup and treatment Here in the ED, patient received the 1st dose of aspirin and atorvastatin Medical Decision Making Medical Decision Making MDM Narrative: All of patient's labs including hematology and chemistry did not show any acute abnormalities Head CT and CTA did not show any acute abnormalities. Patient's vitals within normal limits Patient asymptomatic I discussed the patient with Dr. Maldonado from the Medicine team, patient being admitted, patient agrees with plan Differential Diagnosis Differential Diagnoses: The differential diagnosis associated with the presentation includes (TIA, CVA, paresthesias) Admission/Observation Consideration of admission/observation: Escalation of care including admission/observation considered Consult Healthcare Provider Management of the patient was discussed with: Hospitalist Lab Data [facility] Lab Attestation statement: I reviewed the patient's lab results. 03/31/24 12:18 03/31/24 12:18 Labs: Lab Results 03/31/24 Range/Units 12:18 WBC 5.7 (4.8-10.8) X10*3/uL RBC 4.88 (4.60-5.80) X10*6/uL Hgb 14.9 (14.0-18.0) g/dl Hct 43.8 (42.0-52.0) % MCV 89.8 (80.0-98.0) fL MCH 30.5 (27.0-33.0) pg MCHC 34.0 (31.0-36.0) g/dl RDW 13.2 (11.0-16.0) % Plt Count 168 (160-400) X10*3/uL MPV 11.0 (9.4-12.4) fL Immature Gran % (Auto) 0.4 (0.0-0.4) % Neut % (Auto) 55.4 (45-73) % Lymph % (Auto) 34.3 (20-40) % [place] % (Auto) 8.4 (2-11) % Eos % (Auto) 1.1 (0-4) % Baso % (Auto) 0.4 (0-2) % Lymph # (Auto) 2.0 (1.2-4.9) X10*3/uL [place] # (Auto) 0.5 (0.1-1.2) X10*3/uL Eos # (Auto) 0.1 (0.0-0.4) X10*3/uL Baso # (Auto) 0.0 (0.0-0.2) X10*3/uL Abs Immat Gran (auto) 0.02 (0.00-0.03) X10*3/uL Absolute Neuts (auto) 3.2 (2.0-8.3) x10*3/uL Absolute Nucleated RBC 0.000 (0.0-0.012) X10*3/uL Nucleated RBC % (auto) 0.0 (0.0-0.2) /100WBC PT 10.2 L (10.9-12.4) SEC INR 0.9 (0.9-1.1) Sodium 141 (135-145) mmol/L Potassium 3.9 (3.3-5.1) mmol/L Chloride 108 (96-108) mmol/L Carbon Dioxide 26 (22-29) mmol/L Anion Gap 11 L (12-20) BUN 12 (9-16) mg/dL Creatinine 0.79 (0.5-1.4) mg/dL Estim Creat Clear Calc 124.4 Estimated GFR > 60 Random Glucose 84 (60-115) mg/dL Calcium 9.4 (8.4-10.2) mg/dL Total Bilirubin 0.2 (0.0-1.0) mg/dL AST 35 (5-37) U/L ALT 62 H (0-40) U/L Alkaline Phosphatase 65 (39-117) U/L Troponin I High Sens < 2.7 (<3.5-35.0) ng/L Total Protein 7.5 (6.5-8.0) g/dL Albumin 4.5 (3.5-5.0) g/dL Triglycerides 119 (<150) mg/dL Cholesterol 205 H (<200) mg/dL LDL Cholesterol, Calc 133 H (<100) mg/dL HDL Cholesterol 49 (>40) mg/dL Lipase 136 H (8-78) U/L Independent Interpretation I performed an independent interpretation of an: EKG and CT Scan Interpretation: My interpretation of EKG: Normal sinus rhythm, heart rate 79, no ST segment depression or elevation, no T-wave inversion, QTC 392 Radiology Impression Discussion of test interpretation with radiology: I have reviewed the radiologist's reading. Radiologist Impression: CTA: Aortic arch and cervical great vessels are patent. Intracranial arteries are patent. No aneurysm, dissection, or occlusion. No abnormal intracranial enhancement. The visualized thyroid gland is unremarkable. No cervical mass or fluid collection. Lung apices clear. No acute fracture. IMPRESSION: Patent head and neck CTA Critical Care Time Critical Care Time Critical Care Time: Yes Total Critical Care Time: 60 Attestation: I have personally provided critical care time. Time includes review of lab data, radiology results, discussion with consultants, and monitoring for potential decompensation. Intervention performed as documented. Discharge Plan Discharge Clinical Impression: Brain TIA Patient Disposition: Admitted As Inpatient Prescriptions: No Action cyclobenzaprine 10 mg tablet 10 mg PO TID PRN (Reason: muscle spasm) Qty: 20 0RF pantoprazole 40 mg tablet,delayed release (DR/EC) 40 mg PO DAILY gabapentin 300 mg capsule 300 mg PO BEDTIME Print Language: Colombian
--- NOTE | 2024-03-31 12:08 | ECG_ITS ---
Test Reason : dizziness Blood Pressure : */* mmHG Vent. Rate : 79 BPM Atrial Rate : 79 BPM P-R Int : 156 ms QRS Dur : 86 ms QT Int : 342 ms P-R-T Axes : 60 -4 39 degrees QTcB Int : 392 ms Normal sinus rhythm Normal ECG When compared with ECG of 03-Jun-2023 10:36, No significant change was found Referred By: Enoc Alicea Electronically Signed By: AMANDA SCHOFIELD
[2024-03-31 12:24] LABS: MANUAL DIFF FLAG NO
[2024-03-31 12:29] LABS: Basophils Percent Auto 0.4 % (0-2); Eosinophils Absolute Auto 0.1 X10*3/uL (0.0-0.4); Eosinophils Percent Auto 1.1 % (0-4); Hematocrit 43.8 % (42.0-52.0); Hemoglobin 14.9 g/dl (14.0-18.0); Imm Gran Abs Auto 0.02 X10*3/uL (0.00-0.03); Imm Gran Pct Auto 0.4 % (0.0-0.4); Lymphocytes Percent Auto 34.3 % (20-40); Mean Corpuscular Hemoglobin 30.5 pg (27.0-33.0); Mean Corpuscular Volume 89.8 fL (80.0-98.0); Monocytes Absolute Auto 0.5 X10*3/uL (0.1-1.2); Monocytes Percent Auto 8.4 % (2-11); Neutrophils Absolute Auto 3.2 x10*3/uL (2.0-8.3); Neutrophils Percent Auto 55.4 % (45-73); Platelet Count 168 X10*3/uL (160-400); Red Blood Count 4.88 X10*6/uL (4.60-5.80); Red Cell Distribution Width 13.2 % (11.0-16.0); White Blood Count 5.7 X10*3/uL (4.8-10.8)
[2024-03-31 12:33] LABS: INTERNATIONAL NORM RATIO 0.9 (0.9-1.1); Prothrombin Time 10.2 SEC (10.9-12.4)
[2024-03-31 12:40] LABS: Alanine Aminotransferase 62 U/L (0-40); Albumin Level 4.5 g/dL (3.5-5.0); Alkaline Phosphatase 65 U/L (39-117); Anion Gap 11 (12-20); Aspartate Amino Transferase 35 U/L (5-37); Bilirubin Total 0.2 mg/dL (0.0-1.0); Blood Urea Nitrogen 12 mg/dL (9-16); Calcium 9.4 mg/dL (8.4-10.2); Carbon Dioxide 26 mmol/L (22-29); Chloride 108 mmol/L (96-108); Creatinine Clr Calc Pharmacy 124.4; Estimated Glomerular Filt Rate > 60; Glucose Random 84 mg/dL (60-115); Lipase 136 U/L (8-78); Potassium 3.9 mmol/L (3.3-5.1); Sodium 141 mmol/L (135-145); Total Protein 7.5 g/dL (6.5-8.0)
[2024-03-31 12:47] LABS: Troponin-I High Sensitivity < 2.7 ng/L (<3.5-35.0)
[2024-03-31 16:44] VITALS: BP 115/64; PULSE 73; RESP 18; TEMP 36.7; O2SAT 96
[2024-03-31] MEDS: Aspirin Enteric Coated 325 MG TABLET.DR PO (17:41)
[2024-03-31] MEDS: Atorvastatin Calcium 80 MG TABLET PO (17:41)
[2024-03-31] MEDS: iohexoL 350 MG/ML 100 ML INFUS..BTL 70 ML IV (19:13)
--- OUTSIDE RECORDS SUMMARY | 2024-03-31 19:20 | XMS_ITS | Data Portability ---
Author Organization [facility], [address] [place] [address] Assessment No assessment recorded. Plan of Treatment [...] By Organization Details Last Modified Time 10/23/2022 [id number] allergic reaction: care instructions [email or web address] Not available [...] saturation in Arterial blood by Pulse oximetry Provider Name and Address Organization Details Last Updated DateTime 10/23/2022 100 % 100 % Daniella Cox MD [address] [place], [address], [facility] 10/23/2022 14:30:55 Date Recorded Heart rate Provider Name an d Address Organization Details Last Updated DateTime 10/23/2022 80 /min Daniella Cox MD [address] [facility], [place], [address], [place] - [facility] 10/23/2022 14:31:02 Date Recorded Respiratory rate Provider Name a nd Address Organization Details Last Updated DateTime 10/23/2022 22 /min Daniella Cox MD [address] [place] [address] [place], [address], [place] - [facility] 10/23/2022 14:31:04 Date Recorded Systolic blood pressure Diastolic blood pressure Provider Name and Address Organization Details Last Updated DateTime 10/23/2022 135 mm[Hg] 85 mm[Hg] Daniella Cox MD [address] [facility] [place], [address], [place] - [facility] 10/23/2022 14:30:50 Social History None recorded. Functional Status None recorded. Mental Status None recorded. Family History Nothing Reported. Medical History No medical history recorded. 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 Bee sting- induced anaphylaxis [id number] T63.441A EPI 0.3 ml given in office urgentlyBe nadryl 50mg given.Génesis ent vitals remained stable,Amb ulance arrived and brought to ER Health Concerns Section Related Observation LastModified by Organization Detai ls LastModified Time None Recorded Concern Status LastModified by Organization Details LastModified Time None Recorded Advance Directives Directive None Recorded Payers Encounter Date Sequence Insurance Name Policy Number Policy Joyce Covered Member ID Joyce Member ID Guarantor Name 09/29/2019 1 [place] [place]MEDICAID[place] Felix Fernando [id number] Felixdavina Houseo 10/23/2022 1 [place] Felix Fernando [id number] Felix Fernando Notes Date Note Type Note Provider Name and Address Organization Details Recorded Time 10/23/2022 text/html Facial ProblemReported bypatient.Onset/Timin g:abrupt Location:face bilateral Quality:continuous Duration:10minutes Severity:worsening Associated Symptoms:erythema;mk sea;dizziness;swellin g 10 minutes ago was stung by multiple bees on face. Immediate facials welling, lips, cheeks, eyes and feeling nauseas and dizzy Daniella Cox MD [facility] [place] [place], [address], [place] - [facility] 10/23/2022 14:51:41
--- OUTSIDE RECORDS SUMMARY | 2024-03-31 19:20 | XMS_ITS | Clinical Summary ---
Author Organization [employer] Address [address] [facility] [address] [place] [address] Care Team Providers Care Water Resource Manager Name Role Phone Alexa Boyd MD Primary Care Provide r Allergies No known active allergies Medications nicotine polacrilex (Nicorette) 4 MG gumIndications: Tobacco use disorder Chew 1 each (4 mg) if needed for smoking cessation. 100 each 05/11/2023 Active hydrOXYzine HCl (Atarax) 25 MG tabletIndicatio ns:Anxious mood TAKE 1 TABLET BY MOUTH TWICE A DAY NEEDED 40 tablet 1 05/11/2023 Active nicotine polacrilex (Commit) 4 MG lozenge Dissolve 1 lozenge (4 mg) in the mouth every 2 (two) hours if needed for smoking cessation. 100 lozenge 02/03/2024 Active Hospital, Clinic, or Other Facility Administered Medication Ordered Dose Route Frequency Start Date End Date Status doxycycline (Vibramycin) capsule 100 mgIndications:STI (sexually transmitted infection) 100 mg PO 2 times daily 07/21/2022 Active Active Problems Problem Noted Date Diagnosed Date infection, trichomonal 02/07/2024 Screening examination for STI 12/11/2023 Elevated LFTs 05/21/2023 Assessment & Plan (05/21/2023 11:54 AM EDT): Today extensive discussion was done about life style modifications I advise healthy diet (low calorie) and cardiovascular exercise Mixed dyslipidemia 05/21/2023 Assessment & Plan (12/11/2023 11:17 AM EDT): Lipid panel will be recheck Assessment & Plan (05/21/2023 11:55 AM EDT): Today extensive discussion was done about life style modifications I advise healthy diet (low calorie) and cardiovascular exercise Low TSH level 05/12/2023 Assessment & Plan (12/11/2023 11:17 AM EDT): TSH will be check again today Assessment & Plan (05/21/2023 11:54 AM EDT): I will repeat TSH I explain it has to be done in about 4 weeks Tobacco use disorder 05/11/2023 Encounter for preventive health examination 04/30 Chronic neck pain 05/11/2023 Assessment & Plan (05/21/2023 11:54 AM EDT): PT referral will be printed and given to patient Palpitations 05/11/2023 Assessment & Plan (02/09/2024 12:22 PM EST): Drink plenty of water, avoid caffeine Do not take unknown medications Blood work ordered Cardiology referral 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 02/27/20 23 Neck pain 02/26/2023 02/26/2023 Assessment & Plan (12/11/2023 11:16 AM EDT): Stable c/w same interventions Encounters Date Type Department Care Team Description 03/31/2024 Orders Only GENERIC EXTERNAL DATA DEPARTMENT Provider, Generic External Data 03/22/2024 Telephone [facility] [address] [place] [address] Alexa Boyd MD 02/25/2024 Telephone [facility] [address] [place] [address] Mary Valenzuela, RN Results 02/25/2024 Orders Only [facility] [address] [place] [address] Alexa Boyd MD Elevated LFTs (Primary Dx) 02/13/2024 Telephone [facility] [address] [place] [address] Grace Cruz, RN Results 02/09/2024 11:30 AM EST Telemedicine [facility] [address] [place] [phone] Alexa Boyd MD Palpitations (Primary Dx) 02/09/2024 Travel 02/08/[address] [address] Nedra Grossman MA Chart Prep 02/08/2024 Telephone [facility] [address] [place] [phone] Asael Bey MD 02/07/2024 Orders Only [facility] [address] [address] Asael Bey MD kayleigh trichomonal (Primary Dx) 02/03/2024 7:00 PM EST [facility] [address] [address] Asael Bey MD H/O trichomonal urethritis (Primary Dx); Tobacco dependence 02/03/2024 Travel 02/03/[address] [address] Alexa Boyd MD c/b requested 01/07/2024 Telephone [facility] [address] [place] [phone] Sae, Amrita, OD 01/04/[address] [address] Alexa Boyd MD telephone call from Last 3 Months Immunizations Name Administration Dates Next Due Influenza injectable quadriv alent IIV4 with preservative 01/05/2019 Pfizer Covid-19 Vaccine 12+ 10/17/2020, Tdap 08/05/2020 Social History Tobacco Use Types Packs/Day Years Used Date Smoking Tobacco: Every Day Cigarettes 1 1.1 Started: 2023 Passive Smoke Exposure: Current Smokeless Tobacco: Never Tobacco Cessation:Ready to Q uit: Not Asked; Counseling Given: Not Answered Depression Answer Date Recorded Patient Health Questionnaire-9 Score 6 05/11/2023 Patient Health Questionnaire-9 Score 6 05/11/2023 Last PHQ-9: Questionnaire Data Not on file 0 05/11/2023 Housing Stability Answer Date Recorded What is your housing situation today? I have heide clarke 05/11/[address] you li ve. Do you have problems with any of the following? None of the above 05/11/2023 Food Insecurity Answer Date Recorded Within the past 12 months, y ou worried that your food would run out before you got money to buy more: Never True 05/11/2023 Within the past 12 months,th e food you bought just didn't last and you didn't have enough money to get more: Never True 01/2024 Transportation Answer Date Recorded In the past 12 months, has l ack of transportation kept you from medical appts, meetings, work or from getting things needed for daily living? No 05/11/2023 Utilities Answer Date Recorded In the past 12 months, has t he electric, gas, oil or water company threatened to shut off services in your home? No 05/11/2023 Depression Answer Date Recorded Patient Health Questionnaire-2 Score 0 05/11/2023 Sex and Gender Information Value Date Recorded Sex Assigned at Male 12/30/2021 10:18 AM EDT Legal Sex Male 10:18 AM EDT Gender Identity Male 12/30/2021 10:18 AM EDT Sexual Orientation Choose not to disclose 2021 10:18 AM EDT Last Filed Vital Signs Vital Sign Reading Time Taken Comments Blood Pressure 134/78 02/03/2024 6:42 PM EST Pulse 99 02/03/2024 6:42 PM EST Temperature 36.9 ??C (98.4 ??F) 02/03/2024 6:42 PM ES T Respiratory Rate 20 02/03/2024 6:42 PM EST Oxygen Saturation 97% 02/03/2024 6:42 PM EST Inhaled Oxygen Concentration - - Weight 82 kg (180 lb 12.8 oz) 02/03/2024 6:42 PM EST Height 177.8 cm (5' 10 ) 02/03/2024 6:42 PM EST Body Mass Index 25.94 02/03/2024 6:42 PM EST Plan of Treatment Health Maintenance Due Date Last Done Comments Alcohol/Substance Use Screening 1992 Family Planning (PISQ) 12/29/1995 Hepatitis A Vaccines (1 of 2 - Risk 2-dose series) 12/29/1999 Hepatitis B Vaccines (1 of 3 - 19+ 3-dose series) 12/29/1999 Pneumococcal Vaccine: Pediatrics (0 to 5 Years) and At-Risk Patients (6 to 49) Years) (1 of 2 - PCV) 12/29/1999 COVID-19 Vaccine (3 - 2023-2 5 season) 2023 10/17/2020, 09/26/2020 Influenza Vaccine (#1) 2023 01/05/2019 Depression Screening 05/10/2024 05/11/2023, 05/11/2023 SDOH Screening 05/10/2024 05/11/2023 Tobacco Screening 02/02/2025 02/03/2024 Lipid Panel 02/10/2029 02/11/2024, 12/11/2023, 05/12/2023 DTaP/Tdap/Td Vaccines (2 - T d or Tdap) 08/05/2030 08/05/2020 Zoster Vaccines (1 of 2) 2030 RSV Patients and Patients Aged 60 years or older (1 - 1-dose 75+ series) 12/29/2055 HIV Screening Completed 02/11/2024, 12/11/2023, 05/12/2023 Hepatitis C Screening Completed 02/11/2024 , 12/11/2023, 05/12/2023 HIB Vaccines Aged Out No longer eligi ble based on patient's age to complete this topic HPV Vaccines Aged Out No longer eligi ble based on patient's age to complete this topic IPV Vaccines Aged Out No longer eligi ble based on patient's age to complete this topic Meningococcal Vaccine Aged Out No kimberly emerson eligible based on patient's age to complete this topic RSV under 20 months Aged Out No longe r eligible based on patient's age to complete this topic Rotavirus Vaccines Aged Out No longer eligible based on patient's age to complete this topic Procedures Procedure Name Priority Date/Time Associated Diagnosis Comments CT HEAD WO CONTRAST Routine 03/31/2024 1 2:19 PM EST HIGH SENSITIVITY TROPONIN I Routine 03/31/2024 12:18 PM EST LIPASE Routine 03/31/2024 12:18 PM EST COMPREHENSIVE METABOLIC PANEL Routine 03/31/2024 12:18 PM EST PROTHROMBIN TIME-INR Routine 03/31/2024 12:18 PM EST CBC WITH AUTO DIFFERENTIAL Routine 03/31/2024 12:18 PM EST LIPID PANEL, STANDARD Routine 02/11/2024 10:36 AM EST Palpitations CBC WITH AUTO DIFFERENTIAL Routine 02/11/2024 10:36 AM EST Palpitations COMPREHENSIVE METABOLIC PANEL Routine 02/11/2024 10:36 AM EST Palpitations VITAMIN B12/FOLATE, SERUM PANEL Routine 02/11/2024 10:36 AM EST Palpitations VITAMIN D,25-OH,TOTAL,IA Routine 02/11/2024 10:36 AM EST Palpitations TSH W/REFLEX TO FT4 Routine 02/11/2024 1 0:36 AM EST Palpitations TRICHOMONAS BY TMA (MALES) Routine 02/11/2024 10:36 AM EST infection, trichomonal RPR (MONITOR) W/REFL TITER Routine 02/11/2024 10:36 AM EST H/O trichomonal urethritis HIV 1/2 ANTIGEN/ANTIBODY, FOURTH GENERATION W/RFL Routine 02/11/2024 10:36 AM EST H/O trichomonal urethritis HEPATITIS C AB W/REFL TO HCV RNA, QN, PCR Routine 02/11/2024 10:36 AM EST H/O trichomonal urethritis HEPATITIS B SURFACE ANTIGEN, EIA Routine 02/11/2024 10:36 AM EST H/O trichomonal urethritis HEPATITIS B SURFACE ANTIBODY, QUALITATIVE Routine 02/11/2024 10:36 AM EST H/O trichomonal urethritis HEPATITIS B CORE AB TOTAL Routine 02/11/2024 10:36 AM EST H/O trichomonal urethritis CHLAMYDIA/N. GONORRHOEAE RNA, TMA, UROGENITAL Routine 02/11/2024 10:36 AM EST H/O trichomonal urethritis TRICHOMONAS VAGINALIS RNA, QUALITATIVE, TMA Routine 02/03/2024 7:28 PM EST H/O trichomonal urethritis from Last 3 Months Results * CT Head w/o Contrast (03/31/2024 12:19 PM EST) Anatomical Region Laterality Modality Head, Neck Computed Tomogra phy 03/31/2024 12:1 9 PM EST Narrative 03/31/2024 12:57 PM EST ? [facility] ?[address] ?[place] [address] ? CT Scan Report ? Signed ? Patient: Felix Palma ?MR#: [id number] ?? [id number] ? : 1980 ?Acct:[id number] ? Age/Sex: 43 / M ?ADM Date: 03/31/24 ? Loc: HO.ED ? Attending Dr: ? Ordering Physician: Enoc Alicea ?? Date of Service: 03/31/24 ?? Procedure(s): CT head/brain wo IV con ?? Accession Number(s): [id number] ? cc: Alexa Boyd MD; Enoc Alicea ? Report Number: ?? [id number]: Total DLP = ??731.00 mGy-cm ?? EXAMINATION: CT HEAD WITHOUT IV CONTRAST ? HISTORY: left facial numbness. ? TECHNIQUE: ? Unenhanced helical CT of the head was performed per standard ?? departmental protocol. Coronal and sagittal reformats of the head were ?? also evaluated. One or more of the following techniques was used for ?? dose reduction: Automated exposure control, adjustment of the mA and/or ?? kV according to patient size, use of iterative reconstruction technique. ? DLP: 731 mGy-cm ? COMPARISON: There are no prior studies for comparison. ? FINDINGS: ? BRAIN: ??The brain parenchyma is unremarkable. There is normal ?? garcias/white differentiation. The ventricular system is normal in size ?? and configuration. ??There is no mass effect or midline shift. ??No ?? intra- or extra-axial fluid collections are identified. ? SINUSES: The visualized paranasal sinuses are clear. ??The mastoid air ?? cells and middle ear cavities are well pneumatized. ? ORBITS: The visualized orbits are unremarkable. ? BONES/SOFT TISSUES: The extracranial soft tissues are unremarkable. The ?? calvarium is intact. No suspicious lytic or sclerotic lesions. ? CT/CT head/brain wo IV con ?? IMPRESSION: ?? Unremarkable unenhanced head CT. ? Electronically signed by: ??Roger Love MD ??03/31/2024 12:54 PM EST ?? RP ? Dictated By: ?Roger Love MD ? Signed By: ?<Electronically signed by Roger Love MD in OV> ?03/31/24 1254 ? DD/ 1219 ? TD/TT: 03/31/24 1249 ? Manager Commodities: ? Procedure Note Joseline, Jeison - 03/31/[address] [place] [id number] [address] Scan Report Signed Patient: Felix Palma AMR#: [id number] : 1980Acct:[id number] Age/Sex: 43 / MADM Date: 03/31/24 Loc: HO.ED Attending Dr: Ordering Physician: Enoc Alicea Date of Service: 03/31/24 Procedure(s): CT head/brain wo IV con Accession Number(s): [id number] cc: Alexa Boyd MD; Enoc Alicea Report Number: [id number]: Total DLP = 731.00 mGy-cm EXAMINATION: CT HEAD WITHOUT IV CONTRAST HISTORY: left facial numbness. TECHNIQUE: Unenhanced helical CT of the head was performed per standard departmental protocol. Coronal and sagittal reformats of the head were also evaluated. One or more of the following techniques was used for dose reduction: Automated exposure control, adjustment of the mA and/or kV according to patient size, use of iterative reconstruction technique. DLP: 731 mGy-cm COMPARISON: There are no prior studies for comparison. FINDINGS: BRAIN: The brain parenchyma is unremarkable. There is normal garcias/white differentiation. The ventricular system is normal in size and configuration. There is no mass effect or midline shift. No intra- or extra-axial fluid collections are identified. SINUSES: The visualized paranasal sinuses are clear. The mastoid air cells and middle ear cavities are well pneumatized. ORBITS: The visualized orbits are unremarkable. BONES/SOFT TISSUES: The extracranial soft tissues are unremarkable. The calvarium is intact. No suspicious lytic or sclerotic lesions. CT/CT head/brain wo IV con IMPRESSION: Unremarkable unenhanced head CT. Electronically signed by: Roger Love MD 03/31/2024 12:54 PM EST Dictated By: Roger Love MD Signed By: <Electronically signed by Roger Love MD in OV> 03/31/24 1254 DD/ 1219 TD/TT: 03/31/24 1249 Manager Commodities: [facility] External Provider IMG CT PROCEDURES Final Result * High Sensitivity Troponin I (03/31/2024 12:18 PM EST) TROPONIN I HIGH SENSITIVITY <2.7 <3.5 - 35.0 ng/L [facility] Comment:The Cruz high sens itivity Troponin-I results should beused in conjunction with other diagnostic information suchas ECG, clinical observations and information, and patientsymptoms to aid in the diagnosis of [place]. 03/31/2024 12:1 8 PM EST 03/31/2024 12:22 PM EST us Generic External Data Provider LAB BLOOD ORDERAB LES Final Result [facility] [address] [place] [address] [phone] * CBC auto differential (03/31/2024 12:18 PM EST) Only the most recent of2 resultswithin the time period is included. White Blood Count 5.7 4.8 - 10.8 X10*3/uL [facility] Red Blood Count 4.88 4.60 - 5.80 X10*6/uL [facility] Hemoglobin 14.9 14.0 - 18.0 g/dl [facility] Hematocrit 43.8 42.0 - 52.0 % [facility] Mean Corpuscular Volume 89.8 80.0 - 98.0 fL [facility] Mean Corpuscular Hemoglobin 30.5 27.0 - 33.0 pg [facility] Mean Corpuscular HGB Conc 34.0 31.0 - 36.0 g/dl [facility] Red Cell Distribution Width 13.2 11.0 - 16.0 % [facility] Platelet Count 168 160 - 400 X10*3/uL [facility] Mean Platelet Volume 11.0 9.4 - 12.4 fL [facility] Neutrophils Percent Auto 55.4 45 - 73 % [facility] Imm Gran Pct Auto 0.4 0.0 - 0.4 % [facility] Lymphocytes Percent Auto 34.3 20 - 40 % [facility] Monocytes Percent Auto 8.4 2 - 11 % [facility] Eosinophils Percent Auto 1.1 0 - 4 % [facility] Basophils Percent Auto 0.4 0 - 2 % [facility] NRBC Pct Auto 0.0 0.0 - 0.2 /100WBC [facility] Neutrophils Absolute Auto 3.2 2.0 - 8.3 x10*3/uL [facility] Imm Gran Abs Auto 0.02 0.00 - 0.03 X10*3/uL [facility] Lymphocytes Absolute Auto 2.0 1.2 - 4.9 X10*3/uL [facility] Monocytes Absolute Auto 0.5 0.1 - 1.2 X10*3/uL [facility] Eosinophils Absolute Auto 0.1 0.0 - 0.4 X10*3/uL [facility] Basophils Absolute Auto 0.0 0.0 - 0.2 X10*3/uL [facility] NRBC Abs Auto 0.000 0.0 - 0.012 X10*3/uL [facility] 03/31/2024 12:1 8 PM EST 03/31/2024 12:22 PM EST us Generic External Data Provider LAB BLOOD ORDERAB LES Final Result Performing Organization Address [facility] de Phone Number [facility] [address] [place] [phone] * (ABNORMAL) Prothrombin Time-INR (03/31/2024 12:18 PM EST) Prothrombin Time 10.2(L) 10.9 - 12.4 SEC [facility] INTERNATIONAL NORM RATIO 0.9 0.9 - 1.1 [facility] Comment:INTERNATIONAL NORMAL IZED RATIO (INR) REFERENCE RANGES Reference RangeFor patients not on anticoagulant therapy: 0.9 - 1.1INR ranges for oral anticoagulanttherapy:For prevention and treatment of venous thrombosis and pulmonary embolism: 2.0 - 3.0For acute myocardial infarction with aspirin therapy: 2.0 - 3.0For acute myocardial infarction without aspirin therapy: 3.0 - 4.0For patients with mechanical prosthetic heart valves: 2.5 - 3.5 03/31/2024 12:1 8 PM EST 03/31/2024 12:22 PM EST us Generic External Data Provider LAB BLOOD ORDERAB LES Final Result Performing Organization Address [facility] Co de Phone Number [facility] [address] [place] [address] [phone] * (ABNORMAL) Lipase (03/31/2024 12:18 PM EST) Lipase 136(H) 8 - 78 U/L [facility] 03/31/2024 12:1 8 PM EST 03/31/2024 12:22 PM EST us Generic External Data Provider LAB BLOOD ORDERAB LES Final Result Performing Organization Address [facility]/ZIP Co de Phone Number [facility] [address] [place] [address] [phone] * (ABNORMAL) Comprehensive Metabolic Panel (03/31/2024 12:18 PM EST) Only the most recent of2 resultswithin the time period is included. Sodium 141 135 - 145 mmol/L [facility] Potassium 3.9 3.3 - 5.1 mmol/L [facility] Chloride 108 96 - 108 mmol/L [facility] Carbon Dioxide 26 22 - 29 mmol/L [facility] Anion Gap 11(L) 12 - 20 [facility] Urea Nitrogen (BUN) 12 9 - 16 mg/dL [facility] Creatinine, Serum 0.79 0.5 - 1.4 mg/dL [facility] Creatinine Clr Calc Pharmacy 124.4 [facility] Comment:eGFR (calculated fro m the MDRD study equation) and eCrCl(calculated from the Cockcroft-Gault equation) are based ondifferent parameters and may not yield comparable results.If eCrCl result is absurd, please check patient'sheight/weight. Estimated Glomerular Filt Rate >60 [facility] Comment:Chronic Kidney Disea se: Estimated GFR < 60 mL/min/1.14z2Fneobg Kidney Disease: Estimated GFR < 15 mL/min/1.73m2 Glucose 84 60 - 115 mg/dL [facility] Calcium 9.4 8.4 - 10.2 mg/dL [facility] Bilirubin, Total 0.2 0.0 - 1.0 mg/dL [facility] Aspartate Amino Transferase 35 5 - 37 U/L [facility] Alanine Aminotransferase 62(H) 0 - 40 U/L [facility] Total Protein 7.5 6.5 - 8.0 g/dL [facility] Albumin Level 4.5 3.5 - 5.0 g/dL [facility] Alkaline Phosphatase 65 39 - 117 U/L [facility] 03/31/2024 12:1 8 PM EST 03/31/2024 12:22 PM EST us Generic External Data Provider LAB BLOOD ORDERAB LES Final Result Performing Organization Address [facility]/ZIP Co de Phone Number [facility] [address] [place] [phone] * Vitamin D, 25-Hydroxy, Total, Immunoassay (02/11/2024 10:36 AM EST) Vitamin D 25-OH Total 42.4 >30 ng/mL [facility] Comment:Health Based Referen ce Values*< 20 ng/mL Obxeraojj59-33 ng/mL Insufficient> 30 ng/mL Sufficient*Sharri CORNEJO. N Engl J Med. 2007;357:266-280Care must be taken in interpreting Vitamin D results fromdifferent laboratories and methodologies. Published datademonstrated that results from patients undergoinghemodialysis may show a negative bias when tested withvarious automated 25-OH vitamin D assays when compared toLC-MS/MS.When testing samples from patients whose predominant form ofVitamin D is Vitamin D2, such as patients receiving VitaminD2 supplementation, results that are subtherapeutic shouldbe confirmed with another method such as LC-MS/MS. Blood Venous blood specimen / Unknown 02/11/2024 10:36 AM EST 02/11/2024 11:27 AM EST us Alexa Hay MD LAB BLOOD ORDERABLES Final Result [facility] [address] [place] [phone] * Vitamin B12/Folate, Serum Panel (02/11/2024 10:36 AM EST) Vitamin B12 700 200 - 900 pg/mL [facility] Comment:NORMAL 200-900 PG/ML INDETERMINATE 160-199 PG/ML DEFICIENT < 160 PG/ML Folate 14.8 > or = 4.0 ng/mL [facility] Comment:Reference Values:> o r = 4.0 ng/mL< 4.0 ng/mL suggests folate deficiency Methotrexate, aminopterin and folinic acid(leucovorin) are chemotherapeutic agents whose molecularstructures are similar to folate; therefore, the Architectfolate assay cannot be used for patients using these drugs. Blood Venous blood specimen / Unknown 02/11/2024 10:36 AM EST 02/11/2024 11:27 AM EST us Alexa Hay MD LAB BLOOD ORDERABLES Final Result Performing Organization Address [facility] Co de Phone Number [facility] [address] [place] [phone] * TSH W/Reflex to FT4 (02/11/2024 10:36 AM EST) Pathologist [facility] TSH reflex Free T4 0.43 0.32 - 4.0 uIU/mL [facility] Blood Venous blood specimen / Unknown 02/11/2024 10:36 AM EST 02/11/2024 11:27 AM EST us Alexa Hay MD LAB BLOOD ORDERABLES Final Result Performing Organization Address [facility] Co de Phone Number [facility] [address] [place] [phone] * Trichomonas vaginalis RNA, Qualitative, TMA, Males (02/11/2024 10:36 AM EST) Pathologist [facility] Trichomonas vaginalis RNA Qualitative TMA, Males NOT DETECTED NOT DETECTED [facility] Comment:The analytical perfo rmance characteristics of thisassay have been determined by [facility]. Themodifications have not been cleared or approved bythe FDA. This assay has been validated pursuant to theIA regulations and is used for clinical purposes.For additional information, please refer tohttp://education.[employer]/faq/Trichomonastma(This link is being provided for informational/educational purposes only.)THIS TEST WAS PERFORMED AT:[facility] [place] [phone] MENDOZA MD 02/11/2024 10:3 6 AM EST 02/11/2024 11:27 AM EST us Asael Bey MD LAB URINE ORDERABLES Final Resul t Performing Organization Address [facility] Co de Phone Number [facility] [address] [place] [phone] * Hepatitis C Antibody with Reflex to HCV, RNA, Quantitative, Real-Time PCR (02/11/2024 10:36 AM EST) Hepatitis C Antibody Nonreactive Nonreactive [facility] Comment:Antibodies to HCV no t detected; does not exclude early acuteHCV infection. Blood Venous blood specimen / Unknown 02/11/2024 10:36 AM EST 02/11/2024 11:27 AM EST us Asael Bey MD LAB BLOOD ORDERABLES Final Resul t Performing Organization Address [facility] Co de Phone Number [facility] [address] [place] [phone] * Chlamydia/N. Gonorrhoeae RNA, TMA, Urogenitial (02/11/2024 10:36 AM EST) CT PCR NOT DETECTED Not Detect. [facility] Comment:A not detected test result does not exclude the possibilityof infection because test results can be affected byimproper specimen collection, concurrent antibiotic therapy,or the number of organisms in the specimen which may bebelow the sensitivity of the test. As with many diagnostictests, results from the Xpert CT/NG assay should beinterpreted in conjunction with other laboratory andclinical data available to the clinician.Xpert CT/NG performance has not been evaluated in patientsless than 14 years of age. The assay should not be used forthe evaluationof suspected sexual abuse or for other medico-legalindications. Additional testing is recommended in anycircumstance when false positive or false negative resultscould lead to adverse medical, social or psychologicalconsequences. NG PCR NOT DETECTED Not Detect. [facility] Comment:A not detected test result does not exclude the possibilityof infection because test results can be affected byimproper specimen collection, concurrent antibiotic therapy,or the number of organisms in the specimen which may bebelow the sensitivity of the test. As with many diagnostictests, results from the Xpert CT/NG assay should beinterpreted in conjunction with other laboratory andclinical data available to the clinician.Xpert CT/NG performance has not been evaluated in patientsless than 14 years of age. The assay should not be used forthe evaluationof suspected sexual abuse or for other medico-legalindications. Additional testing is recommended in anycircumstance when false positive or false negative resultscould lead to adverse medical, social or psychologicalconsequences. Urine, Random 02/11/2024 10: 36 AM EST 02/11/2024 11:33 AM EST Narrative [facility] - 02/11/2024 3:22 PM EST Urine Asael Bey MD LAB MICROBIOLOGY - GENERAL ORDER GAL Final Result [facility] [address], [place] [phone] * Hepatitis B surface antigen, EIA (02/11/2024 10:36 AM EST) Hepatitis B Surface Ag Negative Negative [facility] Blood Venous blood specimen / Unknown 02/11/2024 10:36 AM EST 02/11/2024 11:27 AM EST us Asael Bey MD LAB BLOOD ORDERABLES Final Resul t Performing Organization Address [facility] Co de Phone Number [facility] [address] [place] [address] [phone] * Hepatitis B Core Antibody, Total (02/11/2024 10:36 AM EST) Hepatitis B Core Antibody Nonreactive Nonreactive [facility] Blood Venous blood specimen / Unknown 02/11/2024 10:36 AM EST 02/11/2024 11:27 AM EST us Asael Bey MD LAB BLOOD ORDERABLES Final Resul t Performing Organization Address [facility] Phone Number [facility] [address] [place] [address] [phone] * RPR (Monitor) with Reflex to??Titer (02/11/2024 10:36 AM EST) RPR (Monitor) w/Refl Titer NON-REACTI VE NON-REACT ADELINA [facility] Comment:THIS TEST WAS PERFOR MED AT:[facility] [place] [phone] MENDOZA MD Rapid Plasma Reagin Ab Titer TNP [facility] Blood Venous blood specimen / Unknown 02/11/2024 10:36 AM EST 02/11/2024 11:27 AM EST us Asael Bey MD LAB BLOOD ORDERABLES Final Resul t Performing Organization Address [facility] Co de Phone Number [facility] [address] [place] [phone] * HIV-1/2 Antigen and Antibodies, Fourth Generation, with Reflexes (02/11/2024 10:36 AM EST) HIV AB/AG Nonreactive Nonreactive [facility] Comment:HIV-1 p24 Ag and/or HIV-1/HIV-2 Ab not detected.A test result that is nonreactive does not exclude thepossibility of exposure to or infection with HIV-1 and/orHIV-2. Nonreactive results in this assay for individualswith prior exposure to HIV-1 and/or HIV-2 may be due toantigen and antibody levels that are below the limit ofdetection of this assay.The [employer] HIV Ag/Ab Combo assay result andsupplemental assay results should be interpreted inconjunction with the patient's clinical presentation,history and other laboratory results. If the results areinconsistent with clinical evidence, additional testing issuggested to confirm the result. Blood Venous blood specimen / Unknown 02/11/2024 10:36 AM EST 02/11/2024 11:27 AM EST us Asael Bey MD LAB BLOOD ORDERABLES Final Resul t Performing Organization Address [facility] Co id Phone Number [facility] [address] [place] [address] [phone] * Hepatitis B Surface Antibody, Qualitative (02/11/2024 10:36 AM EST) ~Hepatitis B Surface Antibody REACTIVE Nonreactive [facility] Comment:REACTIVE: > 11.99 mI U/mL Blood Venous blood specimen / Unknown 02/11/2024 10:36 AM EST 02/11/2024 11:27 AM EST us Asael Bey MD LAB BLOOD ORDERABLES Final Resul t Performing Organization Address [facility] Co id Phone Number [facility] [address] [place] [address] [phone] * Lipid Panel, Standard (02/11/2024 10:36 AM EST) Triglycerides 120 <150 mg/dL [facility] Comment:Desirable Triglyceri de: less than 150 mg/dLBorderline High Triglyceride 150-199 mg/dLHigh Triglyceride: 200-499 mg/dLVery High Triglyceride: greater than or equal to 5OO mg/dL Cholesterol 164 <200 mg/dL [facility] Comment:Desirable Cholestero l: less than 200 mg/dLBorderline High Cholesterol: 200-239 mg/dLHigh Cholesterol: greater than 239 mg/dL LDL Cholesterol Calculated 97 <100 mg/dL [facility] Comment:Desirable LDL: less than 100 mg/dLNear Optimal/Above Optimal LDL: 110- 129 mg/dLBorderline High LDL: 130-159 mg/dLHigh LDL: 160-189 mg/dLVery High LDL: greater than or equal to 190 mg/dL HDL Cholesterol 43 >40 mg/dL [facility] Comment:Desirable HDL: great er than 40 mg/dL Note: This HDL assay may give artificially low results in patients with liver disease. Blood Venous blood specimen / Unknown 02/11/2024 10:36 AM EST 02/11/2024 11:27 AM EST us Alexa Hay MD LAB BLOOD ORDERABLES Final Result Performing Organization Address [facility] Co de Phone Number [facility] [address] [place] [address] [phone] * (ABNORMAL) Trichomonas RNA (Urine/Vaginal) (02/03/2024 7:28 PM EST) Trichomas vaginalis RNA, QL, TMA DETECTED( A) NOT DETECTED [facility] Comment:For additional infor tameka, please refer tohttp://[email or web address].Guardium/faq/Trichomonastma(This link is being provided for informational/educational purposes only.)THIS TEST WAS PERFORMED AT:[facility] [place] [phone] MENDOZA MD Urine (Urine, Random) 02/03/2024 7:28 PM EST 02/04/2024 12:18 PM EST Asael Bey MD LAB BODY FLUIDS AND STOOLS ORDER GAL Final Result Performing Organization Address [facility]/ZIP Co de Phone Number [facility] [address] [place] [address] [phone] from Last 3 Months Insurance [facility] * Guarantor: Felix Fernando Account Type Relation to Patient Date of Phone Billing Address Personal/Family Self [address] [place] Care Teams Water Resource Manager Relationship Specialty Start Date End Date Alexa Boyd MD [address] [place] [address] [place] PCP - General Family Medicine 10/29/18
--- OUTSIDE RECORDS SUMMARY | 2024-03-31 19:20 | XMS_ITS | Encounter Summary ---
Author Organization [facility] Address [address] [place] [address] Care Team Providers Care Manager Maritime Name Role Phone Alexa Boyd MD Primary Care Provide r Encounter Details Date Type Department Care Team (Latest Contact Info) Description 10/22/2018 Abstract [facility] CONVERSIONS Dental, Provider, DDS Social History Tobacco Use Types Packs/Day Years Used Date Smoking Tobacco: Never Assessed Sex and Gender Information Value Date Recorded Sex Assigned at Male 12/30/2021 10:18 AM EDT Legal Sex Male 10:18 AM EDT Gender Identity Male 12/30/2021 10:18 AM EDT Sexual Orientation Choose not to disclose 2021 10:18 AM EDT documented as of this encounter Plan of Treatment Not on file documented as of this encounter Visit Diagnoses Not on filedocumented in this encounter Care Teams Manager Maritime Relationship Specialty Start Date End Date Alexa Boyd MD [address] [place] [phone] PCP - General Family Medicine 10/29/18 documented as of this encounter
--- OUTSIDE RECORDS SUMMARY | 2024-03-31 19:20 | XMS_ITS | Encounter Summary ---
Author Organization [employer] Address [address] [place] [address] Care Team Providers Care Wire Rope Fabrication Supervisor Name Role Phone Alexa Boyd MD Primary Care Provide r Encounter Details Date Type Department Care Team (Late st Contact Info) Description 03/22/2024 Telephone [facility] MEDICINE [address], [place] [phone] Alexa Boyd MD [address] [place], [place] [phone] Social History Tobacco Use Types Packs/Day Years Used Date Smoking Tobacco: Every Day Cigarettes 1 1.1 Started: 2023 Passive Smoke Exposure: Current Smokeless Tobacco: Never Depression Answer Date Recorded Patient Health Questionnaire-9 Score 6 05/11/2023 Patient Health Questionnaire-9 Score 6 05/11/2023 Last PHQ-9: Questionnaire Data Not on file 0 05/11/2023 Housing Stability Answer Date Recorded What is your housing situation today? I have heideyobany clarke 05/11/[address] you [...] AM EDT documented as of this encounter Miscellaneous Notes * Telephone Encounter - Lit Dudley - 03/22/2024 11:16 AM EST Pharmacy [facility] attempted outreach call on 03/22/24 for CDTM - Smoking Cessation appointment; however,unable to reach patient. LVM for patient to contact Lit Dudley at [phone]. documented in this encounter Plan of Treatment Not on file documented as of this encounter Visit Diagnoses Not on filedocumented in this encounter Additional Health Concerns Assessment Noted Time PHQ-9 Depression Total Score: 6 05/11/19 24 10:13 AM EDT documented as of this encounter Care Teams Wire Rope Fabrication Supervisor Relationship Specialty Start Date End Date Alexa Boyd MD [address] [place] [phone] PCP - General Family Medicine 10/29/18 documented as of this encounter
--- OUTSIDE RECORDS SUMMARY | 2024-03-31 19:20 | XMS_ITS | Encounter Summary ---
Author Organization [employer] Address [address] [facility] [address] [place] [address] Care Team Providers Care Bulldozer Operator Name Role Phone Alexa Boyd MD Primary Care Provide r Encounter Details Date Type Department Care Team (Late st Contact Info) Description 03/31/2024 Orders Only GENERIC EXTERNAL DATA DEPARTMENT Provider, Generic External Data Social History Tobacco Use Types Packs/Day Years [...] on file documented as of this encounter Procedures Procedure Name Priority Date/Time Associated Diagnosis Comments CT HEAD WO CONTRAST Routine 03/31/2024 1 2:19 PM EST HIGH SENSITIVITY TROPONIN I Routine 03/31/2024 12:18 PM EST CBC WITH AUTO DIFFERENTIAL Routine 03/31/2024 12:18 PM EST PROTHROMBIN TIME-INR Routine 03/31/2024 12:18 PM EST LIPASE Routine 03/31/2024 12:18 PM EST COMPREHENSIVE METABOLIC PANEL Routine 03/31/2024 12:18 PM EST documented in this encounter Results * CT Head w/o Contrast (03/31/2024 12:19 PM EST) Anatomical Region Laterality Modality Head, Neck Computed Tomogra phy 03/31/2024 12:1 9 PM EST Narrative 03/31/2024 12:57 PM EST ? [facility] ?[address] ?[place] [address] ? CT Scan Report ? Signed ? Patient: Abdullahi Kulkarni,Leo ?MR#: [id number] ?? [id number] ? : 1980 ?Acct:[id number] ? Age/Sex: 43 / M ?ADM Date: 01/30/25 ? Loc: HO.ED ? Attending Dr: ? Ordering Physician: O'River,Enoc ?? Date of Service: 03/31/24 ?? Procedure(s): CT head/brain wo IV con ?? Accession Number(s): [id number] ? cc: Alexa Boyd MD; Enoc Alicea ? Report Number: ?? [id number]: Total DLP = ??731.00 mGy-cm ?? EXAMINATION: [...] DD/ 1219 ? TD/TT: 03/31/24 1249 ? Automatic Riveting Machine Operator: ? Procedure Note Joseline, Image - 03/31/[address] [address] [address] Scan Report Signed Patient: Abdullahi ShadMassielFelix [facility]#: [id number] : 1980Acct:[id number] Age/Sex: 43 / MADM Date: 03/31/24 Loc: HO.ED Attending Dr: Ordering Physician: Enoc Alicea Date of Service: 03/31/24 Procedure(s): CT head/brain wo IV con Accession Number(s): [id number] cc: Alexa Boyd MD; Enoc Alicea Report Number: [id number]: Total DLP = 731.00 mGy-cm EXAMINATION: CT [...] by: Roger Love MD 03/31/2024 12:54 PM [facility] Dictated By: Roger Love MD Signed By: <Electronically signed by Roger Love MD in OV> 03/31/24 1254 DD/ 1219 TD/TT: 03/31/24 1249 Automatic Riveting Machine Operator: [facility] External Provider IMG CT PROCEDURES Final Result * High Sensitivity Troponin I (03/31/2024 12:18 PM EST) [facility] TROPONIN I HIGH SENSITIVITY <2.7 <3.5 - 35.0 ng/L [facility] Comment:The Cruz high sens itivity Troponin-I results should beused in conjunction with other diagnostic information suchas ECG, clinical observations and information, and patientsymptoms to aid in the diagnosis of [place]. 03/31/2024 12:1 8 PM EST 03/31/2024 12:22 PM EST Generic External Data Provider LAB BLOOD ORDERAB LES Final Result Performing Organization Address [facility]/ZIP Co de Phone Number [facility] [address] [place] [address] [phone] * (ABNORMAL) Lipase (03/31/2024 12:18 PM EST) [facility] Lipase 136(H) 8 - 78 U/L [facility] 03/31/2024 12:1 8 PM EST 03/31/2024 12:22 PM EST [employer] External Data Provider LAB BLOOD ORDERAB LES Final Result Performing Organization Address [facility]/ZIP Co de Phone Number [facility] [address] [place] [phone] * (ABNORMAL) Comprehensive Metabolic Panel (03/31/2024 12:18 PM EST) [facility] Sodium 141 135 - 145 mmol/L [facility] Potassium 3.9 3.3 - 5.1 mmol/L [facility] Chloride 108 96 - 108 mmol/L [facility] Carbon Dioxide 26 22 - 29 mmol/L [facility] Anion Gap 11(L) 12 - 20 [facility] Urea Nitrogen (BUN) 12 9 - 16 mg/dL [facility] Creatinine, Serum 0.79 0.5 - 1.4 mg/dL [facility] Creatinine Clr Calc Pharmacy 124.4 [facility] Comment:eGFR (calculated fro m the MDRD study equation) and eCrCl(calculated from the Cockcroft-Gault equation) are based ondifferent parameters and may not yield comparable results.If eCrCl result is absurd, please check patient'sheight/weight. Estimated Glomerular Filt Rate >60 [facility] Comment:Chronic Kidney Disea se: Estimated GFR < 60 mL/min/1.43j5Wumkrh Kidney Disease: Estimated GFR < 15 mL/min/1.73m2 Glucose 84 60 - 115 mg/dL [facility] Calcium 9.4 8.4 - 10.2 mg/dL [facility] Bilirubin, Total 0.2 0.0 - 1.0 mg/dL [facility] Aspartate Amino Transferase 35 5 - 37 U/L [facility] Alanine Aminotransferase 62(H) 0 - 40 U/L [facility] Total Protein 7.5 6.5 - 8.0 g/dL [facility] Albumin Level 4.5 3.5 - 5.0 g/dL [facility] Alkaline Phosphatase 65 39 - 117 U/L [facility] 03/31/2024 12:1 8 PM EST 03/31/2024 12:22 PM EST us Generic External Data Provider LAB BLOOD ORDERAB LES Final Result [facility] [address] [place] [address] [phone] * (ABNORMAL) Prothrombin Time-INR (03/31/2024 12:18 PM EST) Prothrombin Time 10.2(L) 10.9 - 12.4 SEC [facility] INTERNATIONAL NORM RATIO 0.9 0.9 - 1.1 [facility] Comment:INTERNATIONAL NORMAL IZED RATIO (INR) [...] ORDERAB LES Final Result Performing Organization Address City/State/[facility] Co de Phone Number [facility] [address] [place] [address] [phone] * CBC auto differential (03/31/2024 12:18 PM EST) White Blood Count 5.7 4.8 - 10.8 X10*3/uL [facility] Red Blood Count 4.88 4.60 - 5.80 X10*6/uL [facility] Hemoglobin 14.9 14.0 - 18.0 g/dl [facility] Hematocrit 43.8 42.0 - 52.0 % [facility] Mean Corpuscular Volume 89.8 80.0 - 98.0 fL [facility] Mean Corpuscular Hemoglobin 30.5 27.0 - 33.0 pg [facility] Mean Corpuscular HGB Conc 34.0 31.0 - 36.0 g/dl [facility] Red Cell Distribution Width 13.2 11.0 - 16.0 % [facility] Platelet Count 168 160 - 400 X10*3/uL [facility] Mean Platelet Volume 11.0 9.4 - 12.4 fL [facility] Neutrophils Percent Auto 55.4 45 - 73 % [facility] Imm Gran Pct Auto 0.4 0.0 - 0.4 % [facility] Lymphocytes Percent Auto 34.3 20 - 40 % [facility] Monocytes Percent Auto 8.4 2 - 11 % [facility] Eosinophils Percent Auto 1.1 0 - 4 % [facility] Basophils Percent Auto 0.4 0 - 2 % [facility] NRBC Pct Auto 0.0 0.0 - 0.2 /100WBC [facility] Neutrophils Absolute Auto 3.2 2.0 - 8.3 x10*3/uL [facility] Imm Gran Abs Auto 0.02 0.00 - 0.03 X10*3/uL [facility] Lymphocytes Absolute Auto 2.0 1.2 - 4.9 X10*3/uL [facility] Monocytes Absolute Auto 0.5 0.1 - 1.2 X10*3/uL [facility] Eosinophils Absolute Auto 0.1 0.0 - 0.4 X10*3/uL [facility] Basophils Absolute Auto 0.0 0.0 - 0.2 X10*3/uL [facility] NRBC Abs Auto 0.000 0.0 - 0.012 X10*3/uL [facility] 03/31/2024 12:1 8 PM EST 03/31/2024 12:22 PM EST us Generic External Data Provider LAB BLOOD ORDERAB LES Final Result [facility] [address] [place] [phone] documented in this encounter Visit Diagnoses Not on filedocumented in this encounter Additional Health Concerns Assessment Noted Time PHQ-9 Depression Total Score: 6 05/11/19 24 10:13 AM EDT documented as of this encounter Care Teams Bulldozer Operator Relationship Specialty Start Date End Date Alexa Boyd MD [address] [place] [phone] PCP - General Family Medicine 10/29/18 documented as of this encounter
--- NOTE | 2024-03-31 19:53 | P.HPHOSP_ITS ---
History of Present Illness Date of Service: 03/31/24 Attending physician on admission: Julio Maldonado Chief Complaint: Left-sided facial numbness Pt is a 43-year-old male with a PMH significant for?GERD who presents to the ED for evaluation of left-sided deficits. Pt reports he was driving home after work when he suddenly felt ?different? with the left side of his face feeling numb, shaky/vibrating/twitchy, as well as hot and ?hard like a rock?. Pt finds it difficult to describe the sensation. Reports numbness and tingling extended all the way to his left hand. Also had headache, difficulty speaking and thinking clearly, as well as blurriness in at least his left eye, though possibly both. Symptoms lasted approximately 10 minutes before resolving. Has been experiencing headaches the past few days. Pt reports family hx of early stroke, stating that his brother had a significant stroke at around 46 years of age. Denies chest pain/pressure, palpitations. No SOB or difficulty breathing. Denies nausea, vomiting, abdominal pain. In the ED pt's vitals stable and WNL. Labs were grossly unremarkable and around baseline for pt. No leukocytosis. Stable H&H. No significant electrolyte abnormalities. Renal function WNL. Hepatic function baseline. Troponin negative. CT?of head negative for acute intracranial abnormality. CTA of head and neck with patent vasculature. EKG demonstrated normal sinus rhythm without evidence ischemic changes. Pt was treated with aspirin and statin. Pt will be admitted to the hospital under observation for treatment and further evaluation of left-sided deficits concerning for possible TIA. Review of Systems 2 Review of Systems: Negative except for that which is stated in the [facility] Medical History Elevated liver enzymes Acid reflux Family History Mother No problems noted. Father Liver disease Surgical History H/O umbilical hernia repair Social History Alcohol intake: current Alcohol intake frequency: a few times a month Alcohol type: beer Cigarette Packs Per Day: 1 Cigarettes Per Day: 20.0 Years Smoked: 20 Smoked in Last 30 Days: Yes Advance Directives: No Advance Directives Information Provided: No Meds Allergies Allergy/AdvReac Type Severity Reaction Status Date / Time No Known Allergies Allergy Verified 03/31/24 12:09 none Allergy Unknown n/a Uncoded 12/08/19 11:52 Home Medications ?Medication ?Instructions ?Recorded ?Confirmed ?Last Taken ?Type No Known Home Meds 03/31/24 03/31/24 Unknown History Physical Exam 2 Vital Signs and Narrative: Vital Signs: Last Vital Signs Temp 98.1 F 03/31/24 16:44 Pulse 73 03/31/24 16:44 Resp 18 03/31/24 16:44 BP 115/64 03/31/24 16:44 Pulse Ox 96 03/31/24 16:44 O2 Del Method Room Air 03/31/24 16:44 BMI result Body Mass Index 27.2 General: AOx3, no acute distress Resp: CTA bilaterally CVS: S1, S2, RRR GI: +BS, NT, no distention Skin: Warm, dry Neuro: Cranial nerves II-XII grossly intact bilaterally. Motor grossly intact bilaterally. Diminished sensation to light touch of left face and left lower extremity. Visual underwood full. No facial droop, dysarthria, or difficulty word finding noted. Strength of upper and lower extremities intact and symmetric bilaterally. Negative pronator drift. [id number] intact bilaterally. Extremities: No edema Psych: Appropriate affect Results Labs 03/31/24 12:18 03/31/24 12:18 Labs: Laboratory Results - last 24 hr 03/31/24 12:18 MCV 89.8 MCH 30.5 MCHC 34.0 RDW 13.2 Plt Count 168 MPV 11.0 Immature Gran % (Auto) 0.4 Neut % (Auto) 55.4 Lymph % (Auto) 34.3 [place] % (Auto) 8.4 Eos % (Auto) 1.1 Baso % (Auto) 0.4 Lymph # (Auto) 2.0 [place] # (Auto) 0.5 Eos # (Auto) 0.1 Baso # (Auto) 0.0 Abs Immat Gran (auto) 0.02 Absolute Neuts (auto) 3.2 Absolute Nucleated RBC 0.000 Nucleated RBC % (auto) 0.0 PT 10.2 L INR 0.9 Anion Gap 11 L Estim Creat Clear Calc 124.4 Estimated GFR > 60 Random Glucose 84 Calcium 9.4 Total Bilirubin 0.2 AST 35 ALT 62 H Alkaline Phosphatase 65 Troponin I High Sens < 2.7 Total Protein 7.5 Albumin 4.5 Lipase 136 H Imaging Radiologist's Impressions: Impressions Head CT 03/31/24 12:19 IMPRESSION: Unremarkable unenhanced head CT. Electronically signed by: Roger Love MD 03/31/2024 12:54 PM EST Assessment and Plan (1) Numbness and tingling of left side of face: Status: Acute Plan Pt is a 43-year-old male with a PMH significant for?GERD who presents to the ED for evaluation of left-sided deficits. Pt reports he was driving home after work when he suddenly felt ?different? with the left side of his face feeling numb, shaky/vibrating/twitchy, as well as hot and ?hard like a rock?. Pt was treated with aspirin and statin. Pt will be admitted to the hospital under observation for treatment and further evaluation of left-sided deficits concerning for possible TIA. Left-sided deficits Pt with multiple complaints, including left-sided numbness and tingling face and upper extremity, blurriness, fogginess in thinking, lightheadedness, dizziness, headache Symptoms lasted approximately 10 minutes before resolving Now back to baseline Reports brother had a stroke at 46 years of age Concerning for possible TIA vs complex migraine CT and CTA of head/neck negative Will get MRI of head/brain Neurology consult Will hold on echocardiogram, PT/OT eval, and stroke education pending MRI results Pt given aspirin and statin in the ED Check lipid profile Continue aspirin and statin for now Monitor on telemetry GERD Continue PPI Full Code Attending:?Dr. Maldonado. DVT Prophylaxis: Pt ambulatory, admitted for observation Pt be admitted to hospital under observation for treatment and further evaluation of decided deficits concerning for possible TIA. Quality Stroke Does the patient have a stroke diagnosis?: No VTE Prior VTE?: No VTE Risk Level:: Medical - moderate - high VTE Device Contraindication: Treatment Not Indicated VTE Drug Contraindication: Treatment Not Indicated
[2024-03-31 20:20] LABS: Cholesterol 205 mg/dL (<200); HDL Cholesterol 49 mg/dL (>40); LDL Cholesterol Calculated 133 mg/dL (<100); Triglycerides 119 mg/dL (<150)
--- NOTE | 2024-03-31 20:46 | PHA.MEDREC ---
Addendum entered by Isidra Duvall RPh 03/31/24 20:54: Reviewed by [facility] Original Note: Pharmacy Consult ? Medication Reconciliation Pharmacy has completed the medication reconciliation. Spoke to patient to confirm med list. Patient states he is on an anxiety medication, however he doesn't know the name or dosing. Called [facility] to confirm if any anxiety medications filled. Isabel From [facility] states patient last fill Hydroxyzine 05/2023.
[2024-03-31 20:47] VITALS: BP 125/56; PULSE 71; RESP 20; O2SAT 95
--- NOTE | 2024-03-31 21:03 | PC.NURSE ---
this rn assumed care of pt @ 1900 pt remains in islas bed. pt brought down to mri at this time pt calm and cooperative
--- NOTE | 2024-03-31 21:41 | MHC.EDTECH ---
Patient refused to change in to hospital attire.
[2024-03-31 22:25] VITALS: BP 125/60; PULSE 76; RESP 18; TEMP 36.9; O2SAT 98
--- NOTE | 2024-03-31 22:50 | P.DS_ITS ---
DS: Providers Provider Date of Service: 03/31/24 Date of admission: 03/31/24 20:22 Date of discharge: 03/31/24 Primary care physician: Alexa Hay MD Consults: 03/31/24 20:26 Consult to Neurology Routine Consulting Provider: [facility] Reason for consultation: Left-sided deficits, ?TIA DS: Diagnosis Discharge Diagnosis (1) Numbness and tingling of left side of face: Status: Acute DS: Summary Hospital Course Hospital Course: from initial hpi: 43-year-old male with a PMH significant for?GERD who presents to the ED for evaluation of left-sided deficits. Pt reports he was driving home after work when he suddenly felt ?different? with the left side of his face feeling numb, shaky/vibrating/twitchy, as well as hot and ?hard like a rock?. Pt finds it difficult to describe the sensation. Reports numbness and tingling extended all the way to his left hand. Also had headache, difficulty speaking and thinking clearly, as well as blurriness in at least his left eye, though possibly both. Symptoms lasted approximately 10 minutes before resolving. Has been experiencing headaches the past few days. Pt reports family hx of early stroke, stating that his brother had a significant stroke at around 46 years of age. Denies chest pain/pressure, palpitations. No SOB or difficulty breathing. Denies nausea, vomiting, abdominal pain. In the ED pt's vitals stable and WNL. Labs were grossly unremarkable and around baseline for pt. No leukocytosis. Stable H&H. No significant electrolyte abnormalities. Renal function WNL. Hepatic function baseline. Troponin negative. CT?of head negative for acute intracranial abnormality. CTA of head and neck with patent vasculature. EKG demonstrated normal sinus rhythm without evidence ischemic changes. Pt was treated with aspirin and statin. Pt will be admitted to the hospital under observation for treatment and further evaluation of left-sided deficits concerning for possible TIA. hospital course: Patient was admitted to rule out CVA/TIA. MRI was negative. Likely this was migraine. Patient was not interested in staying to for further monitoring or consultation with Neurology. Will be discharged home can use ibuprofen as needed. Time Attestation Discharge Coordination Time (in mins): 32 Quality: Safe Use of Opioids Does Pt have an Active Cancer Diagnosis on the Problem List?: No Quality: Stroke Does the patient have a stroke diagnosis?: No Physical Exam Vital Signs: Vital Signs: Last Vital Signs Temp 98.4 F 03/31/24 22:25 Pulse 76 03/31/24 22:25 Resp 18 03/31/24 22:25 BP 125/60 03/31/24 22:25 Pulse Ox 98 03/31/24 22:25 O2 Del Method Room Air 03/31/24 22:25 BMI result Body Mass Index 27.2 General: AO X 3, no acute distress Resp: CTA bilateral, no accessory muscles used CVS: S1,S2,RRR GI: soft, non tender, non distended Neuro: motor grossly intact, alert Psych: appropriate affect, appropriate insight DS: Data Data Completed and Pending Labs on day of discharge: Laboratory Results - last 24 hr 03/31/24 12:18 WBC 5.7 RBC 4.88 Hgb 14.9 Hct 43.8 MCV 89.8 MCH 30.5 MCHC 34.0 RDW 13.2 Plt Count 168 MPV 11.0 Immature Gran % (Auto) 0.4 Neut % (Auto) 55.4 Lymph % (Auto) 34.3 [place] % (Auto) 8.4 Eos % (Auto) 1.1 Baso % (Auto) 0.4 Lymph # (Auto) 2.0 [place] # (Auto) 0.5 Eos # (Auto) 0.1 Baso # (Auto) 0.0 Abs Immat Gran (auto) 0.02 Absolute Neuts (auto) 3.2 Absolute Nucleated RBC 0.000 Nucleated RBC % (auto) 0.0 PT 10.2 L INR 0.9 Sodium 141 Potassium 3.9 Chloride 108 Carbon Dioxide 26 Anion Gap 11 L BUN 12 Creatinine 0.79 Estim Creat Clear Calc 124.4 Estimated GFR > 60 Random Glucose 84 Calcium 9.4 Total Bilirubin 0.2 AST 35 ALT 62 H Alkaline Phosphatase 65 Troponin I High Sens < 2.7 Total Protein 7.5 Albumin 4.5 Triglycerides 119 Cholesterol 205 H LDL Cholesterol, Calc 133 H HDL Cholesterol 49 Lipase 136 H Discharge Plan Discharge Anticipated Discharge Date/Time: 03/31/24 22:49 Patient Disposition: Home, Self-Care Discharge Diagnosis: migraine Referrals: Alexa Boyd MD [Primary Care Provider] - 1 Week Discharge Medications: No Action No Known Home Meds Discharge Orders: Discharge Order (Routine); Ordered 03/31/24 Ordered By: Julio Maldonado Diet: Advance to usual diet Activity on Discharge: As tolerated Stand Alone Forms: Patient Portal Discharge page Print Language: Kazakh Care Plan Goals: avoid recurrent symptoms Health Concerns: migraine Plan of Treatment: ibuprofen as needed Assessment: see above
--- NOTE | 2024-03-31 23:16 | PC.NURSE ---
2247: Pt upset, attempting to leave with IV access. IV taken out by TW. Provider Mart Maldonado made aware, okayed to leave. Pt refused to stay for D/C papers.
== END 2024-03-31 23:00 | disposition home or self-care (01) ==
LOC: HO.ED 20:29 → HO.EDOVER 20:37
PROVIDERS: Physician Assistant; Admitting Provider Student in an Organized Health Care Education/Training Program; Emergency Provider Emergency Medicine; PCP Internal Medicine; Visit Provider Internal Medicine
DX: G43.909 Migraine, unspecified, not intractable, without status migrainosus (principal); R20.0 Anesthesia of skin; R20.2 Paresthesia of skin; R42 Dizziness and giddiness; R53.83 Other fatigue; K21.9 Gastro-esophageal reflux disease without esophagitis; Z79.899 Other long term (current) drug therapy
CPT/HCPCS: 36415; 70450; 70496; 70498; 70551; 80053; 80061; 83690; 84484; 85025; 85610; 93005; 99222; 99285; Q9967

== ENCOUNTER → 2024-03-31 12:07 | Outpatient (BNV) | payer OTHER, SELFPAY | PROVIDERS: PCP Internal Medicine; Visit Provider Radiology Diagnostic Radiology | DX: R20.2 Paresthesia of skin (principal) | CPT/HCPCS: 70450; 70496; 70498; 70551 ==

== ENCOUNTER → 2024-03-31 12:08 | Outpatient (BNV) | payer OTHER, SELFPAY | PROVIDERS: Emergency Provider Emergency Medicine; PCP Internal Medicine; Visit Provider Internal Medicine | DX: R42 Dizziness and giddiness (principal) | CPT/HCPCS: 93010 ==

== ENCOUNTER → 2024-03-31 20:22 | Outpatient (BNV) | payer OTHER, SELFPAY | PROVIDERS: Admitting Provider Student in an Organized Health Care Education/Training Program; Emergency Provider Emergency Medicine; PCP Internal Medicine; Visit Provider Student in an Organized Health Care Education/Training Program | DX: R20.0 Anesthesia of skin (principal); R20.2 Paresthesia of skin | CPT/HCPCS: 99222 ==

== ENCOUNTER 2024-05-24 10:23 | Outpatient (REF) | payer OTHER, SELFPAY ==
[2024-05-24 11:26] LABS: MANUAL DIFF FLAG NO
[2024-05-24 11:34] LABS: Basophils Percent Auto 0.5 % (0-2); Eosinophils Absolute Auto 0.1 X10*3/uL (0.0-0.4); Eosinophils Percent Auto 1.2 % (0-4); Hematocrit 46.5 % (42.0-52.0); Hemoglobin 15.4 g/dl (14.0-18.0); Imm Gran Abs Auto 0.02 X10*3/uL (0.00-0.03); Imm Gran Pct Auto 0.3 % (0.0-0.4); Lymphocytes Absolute Auto 2.3 X10*3/uL (1.2-4.9); Lymphocytes Percent Auto 39.5 % (20-40); Mean Corpuscular HGB Conc 33.1 g/dl (31.0-36.0); Mean Corpuscular Hemoglobin 30.4 pg (27.0-33.0); Mean Corpuscular Volume 91.9 fL (80.0-98.0); Mean Platelet Volume 11.2 fL (9.4-12.4); Monocytes Absolute Auto 0.5 X10*3/uL (0.1-1.2); Monocytes Percent Auto 8.7 % (2-11); Neutrophils Absolute Auto 2.9 x10*3/uL (2.0-8.3); Neutrophils Percent Auto 49.8 % (45-73); Platelet Count 185 X10*3/uL (160-400); Red Blood Count 5.06 X10*6/uL (4.60-5.80); Red Cell Distribution Width 13.2 % (11.0-16.0); White Blood Count 5.9 X10*3/uL (4.8-10.8)
[2024-05-24 12:27] LABS: Alanine Aminotransferase 50 U/L (0-40); Albumin Level 4.6 g/dL (3.5-5.0); Alkaline Phosphatase 68 U/L (39-117); Anion Gap 9 (12-20); Aspartate Amino Transferase 27 U/L (5-37); Bilirubin Total 0.2 mg/dL (0.0-1.0); Blood Urea Nitrogen 18 mg/dL (9-16); Carbon Dioxide 25 mmol/L (22-29); Chloride 111 mmol/L (96-108); Estimated Glomerular Filt Rate > 60; Glucose Random 88 mg/dL (60-115); Potassium 4.6 mmol/L (3.3-5.1); Sodium 140 mmol/L (135-145); TSH reflex Free T4 0.61 uIU/mL (0.32-4.0); Total Protein 7.5 g/dL (6.5-8.0)
[2024-05-24 12:30] LABS: HIV AB/AG Nonreactive (Nonreactive); HIV Num 1 0.07 S/CO (0.00-0.99); ~Hepatitis C Antibody Nonreactive (Nonreactive)
[2024-05-25 09:53] LABS: RPR Rapid Plasma Reagin NON-REACTIVE (NON-REACTIVE)
== END 2024-05-24 10:24 | disposition home or self-care (01) ==
LOC: HO.HHCL 10:23
PROVIDERS: Visit Provider Internal Medicine
DX: R00.2 Palpitations (principal); Z11.3 Encounter for screening for infections with a predominantly sexual mode of transmission
CPT/HCPCS: 36415; 80053; 84443; 85025; 86592; 86803; 87389